=== PATIENT | female | born 1945 | race Caucasian/White ===

== ENCOUNTER → 2016-04-18 | Outpatient (CLI) | payer OTHER | LOC: MMPC 10:00 | PROVIDERS: ATTEND Orthopaedic Surgery | DX: M81.0 Age-related osteoporosis without current pathological fracture (principal); M70.61 Trochanteric bursitis, right hip; Z96.7 Presence of other bone and tendon implants; Z96.651 Presence of right artificial knee joint; Z96.641 Presence of right artificial hip joint | CPT/HCPCS: 20610 ×2; 99213; G0463; J0702 ==

== ENCOUNTER 2016-06-16 13:16 | Outpatient (CLI) | payer OTHER ==
[2016-06-16] MEDS ORDERED: Sodium Chloride 0.9% 50 ML IV ONE (13:43)
[2016-06-16 13:54] VITALS: RESP 20; TEMP 97.1
[2016-06-16] MEDS ORDERED: NORMAL SALINE 10 ML SYRINGE FLUSH IVP PRN (13:56)
== END 2016-06-16 14:47 | disposition home or self-care (01) ==
LOC: IV THERAPY 13:16
PROVIDERS: ATTEND Orthopaedic Surgery
DX: M81.0 Age-related osteoporosis without current pathological fracture (principal)
CPT/HCPCS: 96365; 99211

== ENCOUNTER 2018-05-16 13:45 | Inpatient (IN) ==
--- NOTE | 2018-05-16 14:24 | PDOC ---
Fall HPI - General Chief Complaint: Upper Extremity Problem/Injury Stated Complaint: TRIPPED OVER SHOVEL LEFT THUMB AND LEG INJURY Date Seen by Provider: 05/16/18 Time Seen by Provider: 14:24 - History of Present Illness Initial Comments: This very nice 72-year-old woman who was shoveling her on today when she tripped over the shovel and ended up sustaining a fall. She had instant pain in her left hand around the base of her thumb and the base of her first finger and instant pain in her left hip/groin. She contacted EMS and they brought her here to the emergency department. Here in the emergency department she denies any recent cardiopulmonary sorts of problems or issues she states she's never had to have any sort of cardiopulmonary interventions or procedures. She denies being on blood thinners of any kind. She knows that she has severe osteoporosis at this point. She is breathing okay does not have chest pain does not have any neurologic complaints just pain in that left hip and in the left hand and then also some mild pain in the right leg/hip but much less than the left Have you received a tetanus shot in the past 10 years?: No - Patient Home Medications Home Medications: Home Medications Acyclovir 400 mg PO BID 03/29/11 Atorvastatin Calcium [LIPITOR] 10 mg PO DAILY 03/29/11 Acyclovir [Zovirax] 5 gm TP PRN PRN 04/06/11 Carboxymethylcellulose Sodium [Thera Tears] 30 ml OP DAILY 04/06/11 Cyclosporine [Restasis] 1 each OP TID 04/06/11 Hydrocortisone Butyrate/Emoll [Locoid 0.1% Lipocream] 60 gm TP PRN PRN 04/06/11 Acetaminophen with Codeine [Tylenol With Codeine #3 Tablet] 1 tab PO Q6H PRN tab 10/24/13 Codeine Sulfate 1 tab PO PRN PRN tab 10/24/13 Cyanocobalamin Inj [Vitamin B-12 Inj] 1,000 mcg IM MONTHLY ml 10/02/14 Aspirin [Aspir 81] 1 tab PO QHS tab 05/24/16 Activated Charcoal [Charcoal, Activated] 260 mg PO PRN PRN 05/16/18 Fluticasone Nasal [place] 0.05% [Flonase Nasal [place] 0.05%] 1 sprays NASAL BID PRN 05/16/18 Nitroglycerin 0.4 mg SUBLINGUAL TID PRN 05/16/18 - Patient Allergies Allergies/Adverse Reactions: Allergies Allergy/AdvReac Type Severity Reaction Status Date / Time alendronate sodium Allergy Intermediate RASH Verified 05/16/18 15:19 [From Fosamax] latex Allergy Intermediate RASH Verified 05/16/18 15:19 oxycodone [Oxycodone] Allergy Intermediate RASH Verified 05/16/18 15:19 Penicillins Allergy Intermediate RASH Verified 05/16/18 15:19 risedronate sodium Allergy Intermediate RASH Verified 05/16/18 15:19 [From Actonel] Sulfa (Sulfonamide Allergy Intermediate RASH Verified 05/16/18 15:19 Antibiotics) TAPE Allergy Intermediate RASH Uncoded 05/16/18 15:19 Past Medical History - heen HEENT History: Cataracts, Dentures/Partials Cardiovascular History: Valvular Heart Disease Additional Cardiovasular History: HAS 2 LEAKY HEART VALVES Respiratory History: Denies History Gastrointestinal History: Denies History Additional Genitourinary History: HX OF UTI'S Endocrine History: Hypothyroidism Musculoskeletal History: Arthritis, Back Pain, Back Injury, Muscle Weakness, Limited ROM, Carpal Tunnel Prosthesis or Implant: Yes (R KENDY; RIGHT LEG ORIF) Additional Musculoskeletal History: HERNIATED DISC Additional Neurological History: BILAT HAND NUMBNESS Blood Disorders: Denies History Psychiatric History: Denies History Cancer History: Denies History History of MDRO: Yes Alcohol Use: None In the Past 12 Months, Have Used or Abuse Any Substance: None Past Medical History Reviewed: Reviewed - No Changes ROS - Limitations ROS Limitations: No Limitations Constitution: REPORTS: Denies Symptoms Cardiovascular: REPORTS: Denies Cardiac Symptoms Respiratory: REPORTS: Denies Resp Symptoms Neurological: REPORTS: Denies Neuro Symptoms Gastrointestinal: REPORTS: Denies GI Symptoms Endocrine: REPORTS: Denies Symptoms Fall Physical Exam - General Appearance General Appearance: POSITIVE: Alert, Cooperative, No Acute Distress - HEENT HEENT: POSITIVE: Head Inspection Nml, Eyes Inspection Nml - Neck Neck: POSITIVE: Non Tender, Painless ROM - Respiratory / CVS Respiratory / CVS: POSITIVE: Chest Non Tender, No Ecchymosis - Abdomen Abdomen: Soft: (All Quadrants), Normal Bowel Sounds: (All Quadrants), Denies Tenderness: (All Quadrants) - Neuro / Psych Neuro / Psych: POSITIVE: Oriented X3 - Skin Skin: POSITIVE: Intact, Warm, Dry - Back Back: POSITIVE: Normal Inspection, No CVA Tenderness - Extremities Additional Extremities Details: Patient has significant pain in that left hip and a slight amount of pain in the right hip also pain with her left thumb she has ecchymoses around the base of her thumb and in the dorsum of her hand as well. External rotation of the left hip slightly. Joint Exam: POSITIVE: Unable to Bear Weight Fall Progress - Results Reviewed by me Xrays/CTs/US Reviewed by me: Yes Radiology Findings: Left-sided intertrochanteric hip fracture. First metacarpal fracture on the left Lab Results Reviewed by Me: Yes CBC and BMP: 05/16/18 15:25 05/16/18 15:25 Lab Results:: Laboratory Results 05/16/18 05/16/18 05/16/18 15:25 15:25 15:25 WBC 8.45 RBC 3.90 L Hgb 11.2 L Hct 34.8 L MCV 89.2 MCH 28.7 MCHC 32.2 L RDW Std Deviation 46.2 RDW Coeff of Dylan 14.4 Plt Count 239 MPV 9.8 Immature Gran % (Auto) 0.1 Neut % (Auto) 86.9 H Lymph % (Auto) 8.9 L [place] % (Auto) 4.0 L Eos % (Auto) 0 Baso % (Auto) 0.1 Immature Gran # (Auto) 0.01 Neut # (Auto) 7.34 Lymph # (Auto) 0.75 [place] # (Auto) 0.34 Eos # (Auto) 0 Baso # (Auto) 0.01 WBC Morphology Comment Normal morphology Plt Morphology Comment Normal morphology RBC Morph Comment Normal morphology PT 11.2 INR 1.11 Sodium 141 Potassium 3.6 L Chloride 108 Carbon Dioxide 22 L Anion Gap 11 BUN 12 Creatinine 0.5 BUN/Creatinine Ratio 24.00 H Glucose 142 H Calculated Osmolality 293.0 H Calcium 9.4 Magnesium 1.5 L Total Bilirubin 1.2 AST 30 ALT 40 Alkaline Phosphatase 118 Total Protein 6.1 Albumin 3.8 Globulin 2.3 L Albumin/Globulin Ratio 1.60 - Patient's Progress MDM / ED Course: This patient unfortunately has a hip fracture and outfractured hand. We have reached out to orthopedics and are waiting for Dr. Olvera to get surgery but he will likely except the patient. We'll then get hospitalist involved to admit the patient and for surgical clearance.. Patient Care Time - Estimated PCT Patient Care Time (In Minutes): 45 Vital Signs - Recent Vital Signs Vital Signs: Vital Signs (Last 8 hours) Temp Pulse Resp BP Pulse Ox 05/16/18 13:45 97.7 F 109 H 18 120/83 96 - VS Reviewed Vital Signs Reviewed: Yes Discharge Clinical Impression: Intertrochanteric fracture of left femur Qualifiers: Encounter type: initial encounter Fracture type: closed Fracture alignment: nondisplaced Qualified Code(s): S72.145A - Nondisplaced intertrochanteric fracture of left femur, initial encounter for closed fracture Metacarpal bone fracture Qualifiers: Encounter type: initial encounter Metacarpal bone: first Fracture alignment: nondisplaced Laterality: left Discharge Disposition: Admit to Inpatient Condition: Fair Patient Instructions Given at Discharge: Hip Fracture (ED) Follow Up With: MARIA ALEJANDRA SUBRAMANIAN [Primary Care Provider] - Date Decision to Admit to Inpatient: 05/16/18 Time Decision to Admit to Inpatient: 17:43
[2018-05-16] MEDS ORDERED: MORPHINE SULFATE 4 MG/1 ML IVP ONE ×2 (14:32→18:57)
--- NOTE | 2018-05-16 15:05 | DI ---
XR HAND MIN 3VW,05/16/2018 2:22 PM: Clinical History: Status post fall with left hand and thumb pain. Previous Exam: Left wrist performed September 25, 2006 Findings: 3 views of the left hand are obtained, and demonstrate diffuse osteopenia. There is also a fracture i nvolving the proximal left first metacarpal which is new from the prior exam. There are some degenera tive changes involving the first carpometacarpal joint. There is some subchondral cyst formation involving the distal radius. There is loss of joint space th roughout the interphalangeal joints. Impression: Fracture of the left first proximal metacarpal. Diffuse osteopenia and degenerative changes of the fingers and the radiocarpal joint.
[2018-05-16] MEDS ORDERED: ONDANSETRON 4 MG/2 ML VIAL IVP ONE (15:15)
[2018-05-16 15:33] LABS: BASOPHILS # (AUTO) 0.01 10*3/UL; BASOPHILS % (AUTO) 0.1 % (0-1); EOSINOPHILS # (AUTO) 0 10*3/UL; EOSINOPHILS % (AUTO) 0 % (0-8); Hematocrit [HCT] 34.8 % (37.0-47.0); Hemoglobin [HGB] 11.2 g/dL (12.0-16.0); LYMPHOCYTES # (AUTO) 0.75 10*3/uL; MEAN CORPUSCULAR HEMOGLOBIN 28.7 PG (27-31); MEAN CORPUSCULAR HGB CONC 32.2 g/dL (33-37); MEAN CORPUSCULAR VOLUME 89.2 FL (81-99); MEAN PLATELET VOLUME 9.8 FL (7.4-12.2); MONOCYTES # (AUTO) 0.34 10*3/UL (0.3-0.8); NEUTROPHILS # (AUTO) 7.34 10*3/UL; NEUTROPHILS % (AUTO) 86.9 % (50-80)
--- NOTE | 2018-05-16 15:44 | DI ---
XR FEMUR 2VW,05/16/2018 2:22 PM: Clinical History: Fall with left leg pain. Previous Exam: None at this facility. Findings: A single view of the femur is obtained, and demonstrate mild diffuse osteopenia. There is a knee brace in place. Impression: No fracture.
--- NOTE | 2018-05-16 15:48 | DI ---
XR HIP B/L MIN 2VW,05/16/2018 2:36 PM: Clinical History: Status post fall with bilateral hip pain. Previous Exam: None at this facility. Findings: AP view of the pelvis as well as AP view of each hip with crosstable lateral views, and demonstrate a displaced intertrochanteric fracture of the left hip. Degenerative changes of lower lumbar spine are seen. There is a right femoral prosthesis. Impression: Displaced Left-sided intertrochanteric hip fracture
[2018-05-16 15:49] LABS: PLATELET MORPHOLOGY COMMENT NORMAL MORPHOLOGY (NORM); RBC MORPHOLOGY COMMENT NORMAL MORPHOLOGY (NORM); WBC MORPHOLOGY COMMENT NORMAL MORPHOLOGY (NORM)
[2018-05-16 15:51] LABS: BLOOD UREA NITROGEN 12 mg/dL (7-22); SERUM ALBUMIN 3.8 g/dL (3.5-4.8)
[2018-05-16] MEDS ORDERED: CALCIUM CARBONATE 500 MG (TUMS) CHEWABLE TABLET PO PRN (20:00)
[2018-05-16] MEDS ORDERED: ACETAMINOPHEN 325 MG TABLET PO PRN (20:00)
[2018-05-16] MEDS ORDERED: LIDOCAINE W/ SODIUM BICARB 0.5 ML SYR SUBD PRN (20:00)
[2018-05-16] MEDS ORDERED: ONDANSETRON 4 MG/2 ML VIAL IVP PRN (20:00)
--- NOTE | 2018-05-16 20:00 | PDOC ---
HPI - History of Present Illness Date of Service: 05/16/18 Time of Service: 20:30 Chief Complaint: Pain in the left hip after a fall, pain in the left thumb History of Present Illness: This is a 72 years old female with medical history significant for history of mitral valve prolapse, history of cold sores on oral acyclovir, history of hyperlipidemia, previous history of hypothyroidism was on replacement but not anymore, who was out "scooping snow" today when she tripped over the shovel and ended up sustaining a fall. She had pain in the left hand at the base of the finger and also pain in her hip and groin. Neighbors helped her to get into her house. She did not want the medics to bring her here so her neighbor apparently brought her to the hospital in [place] as she knows Dr. Olvera and she thinks highly of him, she lives in [place]. She was evaluated in the ER and found to have a left hip fracture and also fracture of the first left metacarpal she was given pain medication and was admitted. By the time she came into the floor pain seemed to be controlled with the pain medication that she received down in the ER. Patient said that she has a long list of allergies to medication including food. She said the pain medication that works for her is Tylenol with codeine in addition morphine also works for her. She denied a history of hypertension, diabetes, coronary artery disease or stroke. She said she had two leaky valves, previous note mention mitral valve prolapse. She sees the coffee urn attendant for that and last time she had an echo she said maybe a year or 2 years ago. Nobody told her that she need any surgery. History is somewhat difficult to be taken from the patient because she changes the subject quite often and takes long time before she answer the question. Past Medical History Medical History: 1. Hyperlipidemia. 2. History of mitral valve prolapse. 3. History of hypothyroidism was on treatment but her primary discontinued that in 2009 or 2011. 4. History of cold sores on acyclovir including oral and cream. 5. History of nasal allergies. 6. History of dry eyes. 7. History of compression fractures of her back Surgical History: 1. History of Cholecystectomy. 2. History of appendectomy. 3. History of complex right hip surgery in the past. Family History: Reviewed an Not Pertinent Past Social History: Does not smoke, does not drink, no drugs. Lives by herself in [place]. No children. Tobacco Use: Never Smoker In the Past 12 Months, Have Used or Abuse Any of the Following Substance: None Alcohol Use: None Medication / Allergies Home Medications: Home Medications Medication Instructions Recorded Confirmed Type Acyclovir 400 mg PO BID 03/29/11 05/16/18 History Atorvastatin Calcium [LIPITOR] 10 mg PO DAILY 03/29/11 05/16/18 History Acyclovir [Zovirax] 5 gm TP PRN PRN 04/06/11 05/16/18 History Carboxymethylcellulose Sodium 30 ml OP DAILY 04/06/11 05/16/18 History [Thera Tears] Cyclosporine [Restasis] 1 each OP TID 04/06/11 05/16/18 History Hydrocortisone Butyrate/Emoll 60 gm TP PRN PRN 04/06/11 05/16/18 History [Locoid 0.1% Lipocream] Acetaminophen with Codeine 1 tab PO Q6H PRN tab 10/24/13 05/16/18 History [Tylenol With Codeine #3 Tablet] Codeine Sulfate 1 tab PO PRN PRN tab 10/24/13 05/16/18 History Cyanocobalamin Inj [Vitamin B-12 1,000 mcg IM MONTHLY ml 10/02/14 05/16/18 Hi story Inj] Aspirin [Aspir 81] 1 tab PO QHS tab 05/24/16 05/16/18 History Activated Charcoal [Charcoal, 260 mg PO PRN PRN 05/16/18 05/16/18 History Activated] Fluticasone Nasal [place] 0.05% 1 sprays NASAL BID PRN 05/16/18 05/16/18 History [Flonase Nasal [place] 0.05%] Nitroglycerin 0.4 mg SUBLINGUAL TID PRN 05/16/18 05/16/18 History Allergies/Adverse Reactions: Allergies Allergy/AdvReac Type Severity Reaction Status Date / Time alendronate sodium Allergy Intermediate RASH Verified 05/16/18 15:19 [From Fosamax] latex Allergy Intermediate RASH Verified 05/16/18 15:19 oxycodone [Oxycodone] Allergy Intermediate RASH Verified 05/16/18 15:19 Penicillins Allergy Intermediate RASH Verified 05/16/18 15:19 risedronate sodium Allergy Intermediate RASH Verified 05/16/18 15:19 [From Actonel] Sulfa (Sulfonamide Allergy Intermediate RASH Verified 05/16/18 15:19 Antibiotics) TAPE Allergy Intermediate RASH Uncoded 05/16/18 15:19 Review of Systems - Review of Systems All Systems: Reviewed & No Additional Complaints Except as Stated Exam - Vitals Vital Signs: Vital Signs Temperature 97.7 F Temperature Source Temporal Artery Scan Pulse Rate [Pulse Oximeter] 109 Respiratory Rate 18 Blood Pressure [Right Arm] 120/83 Pulse Ox 96 Oxygen Delivery Method Room Air Height 5 ft Weight 117 lb - General General Appearance: No Acute Distress, Cooperative - Head Head Exam: Normal Inspection - Eye Eye Exam: POSITIVE: Normal Appearance - ENT ENT Exam: POSITIVE: Normal Exam - Neck Neck Exam: Normal Inspection - Respiratory Respiratory Exam: POSITIVE: Clear to Auscultation - Bilaterally - Cardiovascular Cardiovascular Exam: POSITIVE: RRR - GI/Abdominal GI/Abdominal Exam: POSITIVE: Normal Bowel Sounds, Non Tender, Non Distended, Soft, No Organomegaly - Rectal Rectal Exam: POSITIVE: Deferred - External Exam: POSITIVE: Deferred - Extremities Extremities Exam: POSITIVE: Normal Inspection - Back Back Exam: POSITIVE: Normal Inspection - Neurological Neurological Exam: POSITIVE: Alert, Oriented x 3, CN II-XII Intact, No Facial Droop, Speech Intact / Clear - Psychiatric Psychiatric Exam: POSITIVE: Flat Affect - Integumentary Integumentary Exam: POSITIVE: Normal Color Results - Labs CBC and BMP: 05/16/18 15:25 05/16/18 15:25 Assessment and Plan - Patient Problems (1) Intertrochanteric fracture of left femur Current Visit: Yes Status: Acute Comment: Dr. Olvera saw the patient and he is planning to do the surgery he said on Monday morning. In terms of revised cardiac risk index assessment, she seems to fall into the one risk category, she does not have a history of coronary artery disease or strokes, creatinine is normal, no diabetes no history of heart failure, the only thing is her EKG is abnormal with questionable Q waves in the inferior leads. I think will order a troponin for some reason she is on Nitro although she does not give me a history of coronary artery disease, the notes from cardiology in 2007 mention atypical chest pain. We'll see what the troponin but regardless I think she can proceed with surgery her risk for cardiac complication is about 1%. In terms of pain I will write for morphine and Tylenol No. 3 as that seem the only thing that works for her. Her magnesium and potassium on the low side will write for replacing both. Code(s): S72.142A - Displaced intertrochanteric fracture of left femur, initial encounter for closed fracture Qualifiers: Encounter type: initial encounter Fracture type: closed Fracture alig nment: nondisplaced Qualified Code(s): S72.145A - Nondisplaced intertrochanteric fracture of left femur, initial encounter for closed fracture (2) Metacarpal bone fracture Current Visit: Yes Status: Acute Comment: Management. Dr. Olvera he said he will fix both of the same time. Code(s): S62.309A - Unspecified fracture of unspecified metacarpal bone, initial encounter for closed fracture Qualifiers: Encounter type: initial encounter Metacarpal bone: first Fracture alignment: nondisplaced Laterality: left (3) History of cold sores Current Visit: Yes Status: Acute Comment: Continue previous medications Code(s): Z86.19 - Personal history of other infectious and parasitic diseases
[2018-05-16] MEDS ORDERED: ACYCLOVIR TP PRN (20:03)
[2018-05-16] MEDS ORDERED: HYDROCORTISONE BUTYRATE TP PRN (20:03)
[2018-05-16] MEDS ORDERED: FLUTICASONE PROPIONATE 16 GRAM (120 SPRAYS / BOTTLE) ENOS PRN (20:03)
[2018-05-16] MEDS ORDERED: [UNRECOGNIZED DRUG - OTHER] TP PRN (20:03)
--- NOTE | 2018-05-16 20:50 | EKG ---
[address] [place] [id number] Measurements Intervals [place] Rate: 82 P: 245 [place]: 155 QRS: -86 QRSD: 86 T: 268 QT: 348 QTc: 387 Interpretive Statements ECTOPIC ATRIAL RHYTHM/ ?Junctional rhythm INFERIOR MYOCARDIAL INFARCTION [40+ ms Q WAVE AND/OR ST/T ABNORMALITY IN II/aVF], OF INDETERMINATE AGE Left [place] deviation No previous ECG available for comparison Electronically Signed On 05-17-18 10:19:03 [facility] by Freddie Decker MD [email or web address]
[2018-05-16] MEDS ORDERED: Magnesium Sulfate 2gm (Premix) 2 GM/50 ML BAG IV ONE (21:53)
[2018-05-16] MEDS: ACYCLOVIR 400 MG TABLET PO SCH (21:59)
[2018-05-16] MEDS: MORPHINE SULFATE 2 MG/1 ML IVP PRN (22:00)
[2018-05-16] MEDS: CYCLOSPORINE OP SCH (23:21)
[2018-05-17] MEDS: MORPHINE SULFATE 2 MG/1 ML IVP PRN ×8 (01:11→22:52)
[2018-05-17] MEDS: MAGNESIUM OXIDE 400 MG TABLET PO SCH (07:40)
[2018-05-17] MEDS: ACETAMINOPHEN WITH CODEINE 300 MG/30 MG TABLET PO PRN ×3 (08:01→21:03)
--- NOTE | 2018-05-17 08:05 | CONSULT ---
Consult Note - Consult Consult Date: 05/16/18 Reason for Consult: PreOp Consulation : Ortho Requesting Physician: Dr. Aubrey Geiger Primary Care Provider: MARIA ALEJANDRA SUBRAMANIAN - History of Present Illness History of Present Illness: Patient is a 72-year-old female who tripped over shovel today landing on her left hip immediate pain and discomfort she also had some pain in the left hand. 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 Patient with deformity pain discomfort of the left hip put on a splint and a knee brace that she has at home and had a friend bring her from [facility] down to [facility] have her care here. She denies any loss of consciousness shortness of breath tripped over a shovel shoveling today. Past Medical History Medical History: 1. Hyperlipidemia. 2. History of mitral valve prolapse. 3. History of hypothyroidism was on treatment but her primary discontinued that in 2009 or 2011. 4. History of cold sores on acyclovir including oral and cream. 5. History of nasal allergies. 6. History of dry eyes. 7. History of compression fractures of her back Surgical History: 1. History of Cholecystectomy. 2. History of appendectomy. 3. History of complex right hip surgery in the past. Family History: Reviewed an Not Pertinent Past Social History: Does not smoke, does not drink, no drugs. Lives by herself in [place]. No children. Tobacco Use: Never Smoker In the Past 12 Months, Have Used or Abuse Any of the Following Substance: None Alcohol Use: None Medication / Allergies Home Medications: Home Medications Medication Instructions Recorded Confirmed Type Acyclovir 400 mg PO BID 03/29/11 05/16/18 History Atorvastatin Calcium [LIPITOR] 10 mg PO DAILY 03/29/11 05/16/18 History Acyclovir [Zovirax] 5 gm TP PRN PRN 04/06/11 05/16/18 History Carboxymethylcellulose Sodium 30 ml OP DAILY 04/06/11 05/16/18 History [Thera Tears] Cyclosporine [Restasis] 1 each OP TID 04/06/11 05/16/18 History Hydrocortisone Butyrate/Emoll 60 gm TP PRN PRN 04/06/11 05/16/18 History [Locoid 0.1% Lipocream] Acetaminophen with Codeine 1 tab PO Q6H PRN tab 10/24/13 05/16/18 History [Tylenol With Codeine #3 Tablet] Codeine Sulfate 1 tab PO PRN PRN tab 10/24/13 05/16/18 History Cyanocobalamin Inj [Vitamin B-12 1,000 mcg IM MONTHLY ml 10/02/14 05/16/18 History Inj] Aspirin [Aspir 81] 1 tab PO QHS tab 05/24/16 05/16/18 History Activated Charcoal [Charcoal, 260 mg PO PRN PRN 05/16/18 05/16/18 History Activated] Fluticasone Nasal Ririe 0.05% 1 sprays NASAL BID PRN 05/16/18 05/16/18 History [Flonase Nasal Ririe 0.05%] Nitroglycerin 0.4 mg SUBLINGUAL TID PRN 05/16/18 05/16/18 History Allergies/Adverse Reactions: Allergies Allergy/AdvReac Type Severity Reaction Status Date / Time alendronate sodium Allergy Intermediate RASH Verified 05/17/18 06:48 [From Fosamax] latex Allergy Intermediate RASH Verified 05/17/18 06:48 oxycodone [Oxycodone] Allergy Intermediate RASH Verified 05/17/18 06:48 Penicillins Allergy Intermediate RASH Verified 05/17/18 06:48 risedronate sodium Allergy Intermediate RASH Verified 05/17/18 06:48 [From Actonel] Sulfa (Sulfonamide Allergy Intermediate RASH Verified 05/17/18 06:48 Antibiotics) TAPE Allergy Intermediate RASH Uncoded 05/16/18 15:19 Exam - - Exam: Patient is a well-developed well-nourished female in no apparent distress she is alert and oriented times recorded with appropriate affect no pain or discomfort in the right upper extremity over the neck or upper portion of the shoulder or elbow on the left she does have some swelling and ecchymosis around the thumb on the left. She can use it for basic and simple activities. Her sensory exam generally appears to be benign. She wears a back brace for chronic compression fractures. Examination the right lower extremity short leg appropriate position long incision along the femur area and it knee and hip. No active issues bruising or ecchymosis on the left no marked or bruising or ecchymosis but some mild shortening and rotation of the femur distally as well as the foot and ankle with normal foot and ankle motion. She has slight internal rotation of the foot and ankle motor and sensory seems to be normal no swelling or edema good pulses and brisk refill. Radiographs were obtained of both hips which show that I don't see any clear evidence of fracture of the femur replacement total knee and total hip that she has on the right elbow is generally appears to be benign she does have a comminuted intertrochanteric fracture which does go down to the lesser trochanteric region. Patient also with x-rays of her hand which show a first metacarpal fracture on the left and the distal proximal third with some slight angulation. - Vitals Vital Signs: Vital Signs Temperature 97 F Temperature Source Temporal Artery Scan Pulse Rate [Pulse Oximeter] 89 Pulse Rate 94 Respiratory Rate 20 Blood Pressure [Right Arm] 113/35 Blood Pressure 110/71 Pulse Ox 90 Oxygen Delivery Method Room Air Height 5 ft Weight 53.07 kg Results - Labs CBC and BMP: 05/16/18 15:25 05/16/18 15:25 Assessment and Plan - Assessment / Plan Additional Assessment/Plan Details: Impression: Left first metacarpal fracture Left comminuted intertrochanteric hip fracture Plan:We discussed the patient's current condition and clinical findings as it pertains to the current situation. Surgical versus nonsurgical options risks and benefits were discussed and reviewed. Options moving forward include but are not limited to continued choice to live with their current condition; evaluate their current condition further with imaging studies and/or diagnostic testing, etc.; treat problem/problems with surgical versus nonsurgical methods. The patient demonstrates a clear understanding of our discussion. All questions were answered. Surgical versus nonsurgical options risks and benefits were discussed and reviewed. The risks include but are not limited to bleeding, infection, neurovascular damage, wound problems, deep vein thromboses, pulmonary embolism, fracture, dislocation, nonunion/malunion, need for further surgery, need for blood transfusion, and loss of life and limb. Certainly any surgical procedure may not improve symptoms and potentially could makes symptoms worse. There are no guarantees implied with the discussion of surgical treatment. All questions are answered and the patient wishes to proceed with surgical treatment. At this point I would like to get a CT scan of the left hip with 3-D reconstruction to get a better sense of the degree of comminution since she has severe osteoporosis. As we've discussed with the patient we tentatively planned awaiting instrumentation for a left trochanteric type nail to help hold reduce h is fracture. She does have poor bone quality so I think a long nail would be appropriate as far as her metacarpal think under anesthesia gentle closed reduction and splinting may be appropriate if this is stable if not may require some pinning. We will proceed with a CT scan at this point in time.
[2018-05-17] MEDS: Potassium Chloride Tab 10 MEQ TAB PO SCH (08:39)
[2018-05-17] MEDS: ACYCLOVIR 400 MG TABLET PO SCH ×2 (08:39→21:03)
[2018-05-17] MEDS: CYCLOSPORINE OP SCH ×3 (09:12→21:09)
--- NOTE | 2018-05-17 10:04 | PDOC(PROG) ---
Interval History: Patient had no complaints pain is controlled as been wanting to take a shower nursing in the room and they will asked Dr. Olvera if this is possible. She also wants her Lipitor restarted MAR she says she has not been taking it for the last 3 months because she ran out she wants it tonight at 8 PM denies chest pain nausea vomiting Objective : Data - Labs CBC and BMP: 05/16/18 15:25 05/16/18 15:25 Objective : Exam - General General Appearance: Cooperative - Respiratory Respiratory Exam: Clear to Auscultation - Bilaterally, Breathing Non Labored, Normal To Percussion, Normal to Percussion and Palpation - Cardiovascular Cardiovascular Exam: RRR, No Murmur, No Clicks, No Gallops, No Rubs, PMI Non- Displaced - GI/Abdominal GI/Abdominal Exam: Normal Bowel Sounds, Non Tender, Non Distended, Soft, No Masses, No Hepatomegaly, No Splenomegaly, No Organomegaly Assessment and Plan - Patient Problems (1) Intertrochanteric fracture of left femur Current Visit: Yes Status: Acute Comment: Deferred to Dr. Olvera most likely surgery in a.m. Code(s): S72.142A - Displaced intertrochanteric fracture of left femur, initial encounter for closed fracture Qualifiers: Encounter type: initial encounter Fracture type: closed Fracture alignment: nondisplaced Qualified Code(s): S72.145A - Nondisplaced intertrochanteric fracture of left femur, initial encounter for closed fracture (2) Metacarpal bone fracture Current Visit: Yes Status: Acute Code(s): S62.309A - Unspecified fracture of unspecified metacarpal bone, initial encounter for closed fracture Qualifiers: Encounter type: initial encounter Metacarpal bone: first Fracture alignment: nondisplaced Laterality: left (3) History of cold sores Current Visit: Yes Status: Acute Code(s): Z86.19 - Personal history of other infectious and parasitic diseases (4) Hypercholesterolemia Current Visit: Yes Status: Acute Comment: 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
--- NOTE | 2018-05-17 11:40 | DI ---
CT Lower Extremity WO Contrast,05/17/2018 7:55 AM: Clinical History: Comminuted left hip fracture. Previous Exam: March 04, 2007 Findings: Multiple helically acquired CT images are obtained through the pelvis without contrast, and demonstra te postsurgical changes involving the right hip consistent with total hip arthroplasty and a right lo wer extremity Prosthesis extending down the right femur. There is a comminuted intertrochanteric fracture with avulsion of the lesser trochanter. There is dao nward displacement of the femoral head. There is some soft tissue stranding within the fat and the musculature. Impression: Comminuted intertrochanteric fracture of the left proximal femur.
[2018-05-17] MEDS ORDERED: CYANOCOBALAMIN 1000 MCG/1 ML VIAL IM SCH (13:00)
--- NOTE | 2018-05-17 13:54 | ORTHO.PROG ---
Last Taken Vital Signs: Vital Signs - Last Taken Temperature 97 F 05/17/18 07:14 Pulse Rate 89 05/17/18 07:14 Respiratory Rate 20 05/17/18 07:14 Blood Pressure 113/35 05/17/18 07:14 Pulse Ox 90 05/17/18 07:14 Subjective: Patient with a fair amount of pain left femur a little less so in the left hand. Objective: Left lower extremity no swelling or edema full active range of motion, popliteal adductor hiatus or mid to lower thigh pain. No pitting edema or swelling. No marked bruising or ecchymosis motor and sensory exam in the lower extremities is normal. Left hand has a fair amount of ecchymosis some mild angulation of the metacarpal but alignment overall seems reasonable patient with CMC joint arthritis. Patient's other hand with CMC arthritis in hyperextension at the MCP joint. Laboratory Results 05/16/18 05/16/18 05/16/18 15:25 15:25 15:25 WBC 8.45 RBC 3.90 L Hgb 11.2 L Hct 34.8 L MCV 89.2 MCH 28.7 MCHC 32.2 L RDW Std Deviation 46.2 RDW Coeff of Dylan 14.4 Plt Count 239 MPV 9.8 Immature Gran % (Auto) 0.1 Neut % (Auto) 86.9 H Lymph % (Auto) 8.9 L [place] % (Auto) 4.0 L Eos % (Auto) 0 Baso % (Auto) 0.1 Immature Gran # (Auto) 0.01 Neut # (Auto) 7.34 Lymph # (Auto) 0.75 [place] # (Auto) 0.34 Eos # (Auto) 0 Baso # (Auto) 0.01 WBC Morphology Comment Normal morphology Plt Morphology Comment Normal morphology RBC Morph Comment Normal morphology PT 11.2 INR 1.11 Sodium 141 Potassium 3.6 L Chloride 108 Carbon Dioxide 22 L Anion Gap 11 BUN 12 Creatinine 0.5 BUN/Creatinine Ratio 24.00 H Glucose 142 H Calculated Osmolality 293.0 H Calcium 9.4 Magnesium 1.5 L Total Bilirubin 1.2 AST 30 ALT 40 Alkaline Phosphatase 118 Troponin I Total Protein 6.1 Albumin 3.8 Globulin 2.3 L Albumin/Globulin Ratio 1.60 05/16/18 05/17/18 15:45 08:44 WBC RBC Hgb Hct MCV MCH MCHC RDW Std Deviation RDW Coeff of Dylan Plt Count MPV Immature Gran % (Auto) Neut % (Auto) Lymph % (Auto) [place] % (Auto) Eos % (Auto) Baso % (Auto) Immature Gran # (Auto) Neut # (Auto) Lymph # (Auto) [place] # (Auto) Eos # (Auto) Baso # (Auto) WBC Morphology Comment Plt Morphology Comment RBC Morph Comment PT INR Sodium Potassium Chloride Carbon Dioxide Anion Gap BUN Creatinine BUN/Creatinine Ratio Glucose Calculated Osmolality Calcium Magnesium 1.9 Total Bilirubin AST ALT Alkaline Phosphatase Troponin I < 0.012 Total Protein Albumin Globulin Albumin/Globulin Ratio Vital Signs (24 hrs) 05/16/18 19:09 05/16/18 19:20 05/17/18 00:35 Temperature 99.5 F 98.6 F 98.9 F Pulse Rate 94 Pulse Rate [Pulse Oximeter] 85 88 Respiratory Rate 18 24 20 Blood Pressure 110/71 Blood Pressure [Right Arm] 122/79 107/56 Pulse Ox 94 94 91 05/17/18 04:00 05/17/18 07:00 05/17/18 07:14 Temperature 99.2 F 97 F Pulse Rate Pulse Rate [Pulse Oximeter] 88 89 89 Respiratory Rate 20 20 20 Blood Pressure Blood Pressure [Right Arm] 123/57 113/35 Pulse Ox 94 90 Assessment: Left intertrochanteric femoral neck fracture and thumb metacarpal fracture Plan: Patient had a CT scan which showed comminution of the proximal femur. Spent time discussing surgical options techniques for stabilization. I think based on her history of significant osteoporosis a long trochanteric nail with appropriate lag screw would be appropriate. We're going to try a closed reduction of the left thumb and splinting. She is in agreement we'll proceed along these lines at the current time We discussed the patient's current condition and clinical findings as it pertains to the current situation. Surgical versus nonsurgical options risks and benefits were discussed and reviewed. Options moving forward include but are not limited to continued choice to live with their current condition; evaluate their current condition further with imaging studies and/or diagnostic testing, etc.; treat problem/problems with surgical versus nonsurgical methods. The patient demonstrates a clear understanding of our discussion. All questions were answered. Surgical versus nonsurgical options risks and benefits were discussed and reviewed. The risks include but are not limited to bleeding, infection, neurovascular damage, wound problems, deep vein thromboses, pulmonary embolism, fracture, dislocation, nonunion/malunion, need for further surgery, need for blood transfusion, and loss of life and limb. Certainly any surgical procedure may not improve symptoms and potentially could makes symptoms worse. There are no guarantees implied with the discussion of surgical treatment. All questions are answered and the patient wishes to proceed with surgical treatment.
[2018-05-17] MEDS: Hypromellose/Glycerin/PEG 400 Ophth Soln 15 ML DROPS EACH EYE SCH (14:11)
--- NOTE | 2018-05-17 16:13 | OT AM DAY ---
AM - Occupational Therapy S: The patient was adamant about having a bigger brace. The one that she had on was not protecting her thumb. O: We tried a brace that would fit the patient's frame a little bit better, but she stated that it rubbed too much. We did give the patient a large thumb spica brace. She did not want one custom made. The therapist had to try about four different braces in order for the patient to be satisfied with the fit and comfort of the brace. A: The patient was pretty particular about the brace. Hopefully this one will work for her. P: No further therapy is indicated at this time. MTDD
[2018-05-17] MEDS ORDERED: ATORVASTATIN 10 MG TABLET PO SCH (21:00)
[2018-05-18] MEDS: Lactated Ringers 1,000 ML PRIMARY IV SCH ×5 (00:34→16:35)
[2018-05-18] MEDS: MORPHINE SULFATE 2 MG/1 ML IVP PRN ×3 (01:54→08:05)
[2018-05-18] MEDS: ACETAMINOPHEN WITH CODEINE 300 MG/30 MG TABLET PO PRN ×2 (03:00→09:14)
[2018-05-18] MEDS ORDERED: Clindamycin 900mg (Premix) 900 MG/50 ML BAG IV ONE ×2 (06:00→11:16)
[2018-05-18] MEDS ORDERED: LIDOCAINE W/ SODIUM BICARB 0.5 ML SYR SUBD ONE (06:00)
[2018-05-18] MEDS ORDERED: BUPivacaine Liposome/PF (Exparel) Inj 20ml vial INFIL ONE ×2 (06:00→14:04)
[2018-05-18] MEDS ORDERED: Nasal Sanitizer POPSWAB ampule 3 AMP (Nozin) PREOP DOSE ENOS SCH (06:00)
[2018-05-18 08:34] LABS: BILIRUBIN,URINE NEGATIVE (NEG); CLARITY,URINE CLEAR (CLEAR); COLOR,URINE YELLOW (Y); GLUCOSE, URINE (UA) NEGATIVE (NEG); OCCULT BLOOD,URINE MODERATE (NEG); PH,URINE 5.5 (5.0-8.5); PROTEIN,URINE NEGATIVE (NEG)
[2018-05-18 08:41] LABS: BACTERIA,URINE FEW; SQUAMOUS EPITHELIAL CELL,UR RARE; URINE SAMPLE TYPE CLEAN CATCH URINE
[2018-05-18] MEDS ORDERED: ATORVASTATIN 10 MG TABLET PO SCH (09:00)
--- NOTE | 2018-05-18 09:04 | ORTHO.PROG ---
Last Taken Vital Signs: Vital Signs - Last Taken Temperature 97.7 F 05/18/18 06:55 Pulse Rate 87 05/18/18 06:55 Respiratory Rate 16 05/18/18 06:55 Blood Pressure 103/49 05/18/18 06:55 Pulse Ox 91 05/18/18 06:55 Subjective: Patient notes no change with pain level reasonably controlled on Tylenol with codeine and morphine. Objective: Examination shows patient has mild internal rotation of the hip slight shortening. No open wounds or lesions. Patient with a knee brace in place. Patient also with a left hand ecchymosis and brace in place with a normal neurovascular status. Same with the lower extremity motor and sensory exam is nonfocal with good pulses brisk refill no pitting edema or swelling, popliteal, adductor hiatus or lower thigh pain. Laboratory Results 05/17/18 05/18/18 08:44 08:13 Magnesium 1.9 Ur Collection Type Clean catch urine Urine Color Yellow Urine Clarity Clear Urine pH 5.5 Ur Specific [place] 1.007 Urine Protein Negative Urine Glucose (UA) Negative Urine Ketones Negative Urine Occult Blood Moderate H Urine Nitrate Negative Urine Bilirubin Negative Urine Urobilinogen 1.0 Ur Leukocyte Esterase Small Urine RBC 9-14 A Urine WBC 4-8 H Ur Squamous Epith Cells Rare Ur Renal Epithelial Cell None Urine Crystals None Urine Bacteria Few Urine Casts None Urine Mucus Few Urine Trichomonas None Urine Yeast None Ur Culture Indicated? Culture set Assessment: Patient with a left first metacarpal fracture slight angulation. Left intertrochanteric comminuted fracture Plan: However discussion reviewed pictures of the intertrochanteric hip fracture on the left and also the hand discussed treatment with the patient of these she agrees and wishes to proceed along these lines the tentative plan is a closed reduction of the thumb placed into a radial gutter thumb spica splint and as far as the left femur that would be reduction and intramedullary nail long was stabilization. We reviewed radiographic pictures of the fractures. All questions were answered. Surgical versus nonsurgical options risks and benefits were discussed and reviewed. The risks include but are not limited to bleeding, infection, neurovascular damage, wound problems, deep vein thromboses, pulmonary embolism, fracture, dislocation, nonunion/malunion, need for further surgery, need for blood transfusion, and loss of life and limb. Certainly any surgical procedure may not improve symptoms and potentially could makes symptoms worse. There are no guarantees implied with the discussion of surgical treatment. All questions are answered and the patient wishes to proceed with surgical treatment.
[2018-05-18 09:12] LABS: Hematocrit [HCT] 27.5 % (37.0-47.0); Hemoglobin [HGB] 8.7 g/dL (12.0-16.0); MEAN CORPUSCULAR HEMOGLOBIN 28.4 PG (27-31); MEAN CORPUSCULAR HGB CONC 31.6 g/dL (33-37); MEAN CORPUSCULAR VOLUME 89.9 FL (81-99); MEAN PLATELET VOLUME 9.9 FL (7.4-12.2); RED BLOOD COUNT 3.06 10^6/uL (4.20-5.40)
[2018-05-18 09:29] LABS: BLOOD UREA NITROGEN 8 mg/dL (7-22)
[2018-05-18] MEDS ORDERED: Sodium Chloride 0.9% 0 ML ONE (10:32)
[2018-05-18] MEDS ORDERED: Sodium Chloride 0.9% 0 ML PRIMARY IV ONE (10:32)
[2018-05-18] MEDS: Potassium Chloride Tab 10 MEQ TAB PO SCH (11:10)
[2018-05-18] MEDS: ACYCLOVIR 400 MG TABLET PO SCH ×2 (11:10→20:41)
[2018-05-18] MEDS: Hypromellose/Glycerin/PEG 400 Ophth Soln 15 ML DROPS EACH EYE SCH (11:11)
[2018-05-18] MEDS: MAGNESIUM OXIDE 400 MG TABLET PO SCH (11:11)
[2018-05-18] MEDS: CYCLOSPORINE OP SCH ×2 (11:11→16:05)
[2018-05-18] MEDS ORDERED: MIDAZOLAM HCL 2 MG/2 ML VIAL ONE ×2 (11:21→12:04)
[2018-05-18] MEDS ORDERED: fentaNYL Inj 250 MCG/5 ML VIAL ONE (11:22)
[2018-05-18] MEDS ORDERED: BUPivacaine Inj 0.25% PF - 10ml vial ONE ×2 (11:37→14:06)
[2018-05-18] MEDS ORDERED: LIDOCAINE W/ SODIUM BICARB 0.5 ML SYR ONE (11:44)
[2018-05-18] MEDS ORDERED: PROPOFOL 10 MG/1 ML (200 MG/20 ML) VIAL IV ONE (12:02)
[2018-05-18] MEDS ORDERED: KETAMINE HCL 100 MG/2 ML SYRINGE IV ONE (12:42)
[2018-05-18] MEDS ORDERED: Sodium Chloride 0.9% vial 10 ML ONE (13:04)
[2018-05-18] MEDS ORDERED: BACITRACIN 50,000 UNIT VIAL IRRIG ONE (13:04)
[2018-05-18] MEDS ORDERED: Lactated Ringers 1,000 ML PRIMARY IV ONE (13:14)
[2018-05-18] MEDS ORDERED: TRANEXAMIC ACID 1,000 MG / 10 ML VIAL ONE (13:20)
[2018-05-18] MEDS ORDERED: ePHEDrine Inj 50 MG/ML AMP ONE (13:47)
--- NOTE | 2018-05-18 14:42 | ORTHO.OP ---
- - -: See Dictated Operative Report Procedure Codes - Hip Procedures Secondary Hip Procedure: Other CPT Code(s) (CPT codes [address] Salvador assisted with case)
--- NOTE | 2018-05-18 14:51 | PDOC(PROG) ---
Interval History: Patient is about to go in for surgery for her repair of her left hip and left thumb no chest pain nausea or vomiting Objective : Data - Labs CBC and BMP: 05/18/18 08:50 05/18/18 08:50 Objective : Exam - Respiratory Respiratory Exam: Clear to Auscultation - Bilaterally, Breathing Non Labored, Normal To Percussion, Normal to Percussion and Palpation - Cardiovascular Cardiovascular Exam: RRR, No Murmur, No Clicks, No Gallops, No Rubs, PMI Non- Displaced - GI/Abdominal GI/Abdominal Exam: Normal Bowel Sounds, Non Tender, Non Distended, Soft, No Masses, No Hepatomegaly, No Splenomegaly, No Organomegaly Assessment and Plan - Patient Problems (1) Intertrochanteric fracture of left femur Current Visit: Yes Status: Acute Comment: Going to surgery this a.m. Code(s): S72.142A - Displaced intertrochanteric fracture of left femur, initial encounter for closed fracture Qualifiers: Encounter type: initial encounter Fracture type: closed Fracture alignment: nondisplaced Qualified Code(s): S72.145A - Nondisplaced intertrochanteric fracture of left femur, initial encounter for closed fracture (2) Metacarpal bone fracture Current Visit: Yes Status: Acute Comment: Going to surgery today this morning Code(s): S62.309A - Unspecified fracture of unspecified metacarpal bone, initial encounter for closed fracture Qualifiers: Encounter type: initial encounter Metacarpal bone: first Fracture alignment: nondisplaced Laterality: left (3) History of cold sores Current Visit: Yes Status: Acute Code(s): Z86.19 - Personal history of other infectious and parasitic diseases (4) Hypercholesterolemia Current Visit: Yes Status: Acute Code(s): E78.00 - Pure hypercholesterolemia, unspecified (5) Hypokalemia Current Visit: Yes Status: Acute Comment: replace Code(s): E87.6 - Hypokalemia (6) Anemia Current Visit: Yes Status: Acute Comment: monitor Code(s): D64.9 - Anemia, unspecified
[2018-05-18] MEDS ORDERED: LIDOCAINE W/ SODIUM BICARB 0.5 ML SYR SUBD PRN (15:06)
[2018-05-18] MEDS ORDERED: fentaNYL Inj 100 MCG/2 ML VIAL IVP PRN (15:06)
[2018-05-18] MEDS ORDERED: HYDROmorphone 2 MG/1 ML IVP PRN (15:06)
[2018-05-18] MEDS ORDERED: ONDANSETRON 4 MG/2 ML VIAL IVP PRN ×3 (15:06→16:01)
[2018-05-18] MEDS ORDERED: HYDROmorphone 2 MG/1 ML ONE (15:07)
[2018-05-18] MEDS ORDERED: Lactated Ringers 1,000 ML PRIMARY IV SCH (15:15)
--- NOTE | 2018-05-18 15:16 | CRNA.PROGR ---
Anesthesia Time - Procedure/Recovery Time Start Date: 05/18/18 End Date: 05/18/18 Anesthesia : Time In: 12:03 Anesthesia : Time Out: 14:44 Anesthesia : Total Time: 161 - Total Anesthesia Time Total Anesthesia Time (minutes): 161 - Other Weight: 53.07 kg Height: 5 ft Body Mass Index (BMI): 22.8 Physical Status: P3 Anesthesia Type: General Anesthesia : LMA
--- NOTE | 2018-05-18 15:16 | CRNA.PROGR ---
Anesthesia Recovery Phase I - Post Anesthesia Evaluation Patient's Condition on Arrival in Phase I: Stable Pain Level: 3
[2018-05-18] MEDS ORDERED: ONDANSETRON 4 MG/2 ML VIAL ONE (15:51)
[2018-05-18] MEDS ORDERED: FLUTICASONE PROPIONATE 16 GRAM (120 SPRAYS / BOTTLE) ENOS PRN (16:01)
[2018-05-18] MEDS ORDERED: ACTIVATED CHARCOAL PO PRN (16:01)
[2018-05-18] MEDS ORDERED: ACYCLOVIR TP PRN (16:01)
[2018-05-18] MEDS ORDERED: HYDROmorphone 2 MG TABLET PO PRN (16:01)
[2018-05-18] MEDS ORDERED: HYDROCORTISONE BUTYRATE TP PRN (16:01)
[2018-05-18] MEDS ORDERED: [UNRECOGNIZED DRUG - OTHER] TP PRN (16:01)
[2018-05-18] MEDS: Clindamycin 900mg (Premix) 900 MG/50 ML BAG IV SCH (17:30)
[2018-05-18] MEDS: HYDROmorphone 2 MG/1 ML IVP PRN (20:00)
[2018-05-18] MEDS: ASPIRIN EC 81 MG TABLET PO SCH (20:41)
[2018-05-18] MEDS: ATORVASTATIN 10 MG TABLET PO SCH (20:41)
[2018-05-18] MEDS: DOCUSATE 100 MG CAPSULE PO SCH (20:42)
[2018-05-18] MEDS ORDERED: CYCLOSPORINE OP SCH (21:00)
[2018-05-19] MEDS: Clindamycin 900mg (Premix) 900 MG/50 ML BAG IV SCH ×2 (00:11→05:44)
[2018-05-19] MEDS: HYDROmorphone 2 MG/1 ML IVP PRN ×3 (02:11→07:14)
[2018-05-19] MEDS: Lactated Ringers 1,000 ML PRIMARY IV SCH (02:14)
[2018-05-19 04:53] LABS: BASOPHILS # (AUTO) 0.01 10*3/UL; BASOPHILS % (AUTO) 0.2 % (0-1); EOSINOPHILS # (AUTO) 0.02 10*3/UL; EOSINOPHILS % (AUTO) 0.4 % (0-8); Hematocrit [HCT] 21.7 % (37.0-47.0); LYMPHOCYTES # (AUTO) 0.49 10*3/uL; MEAN CORPUSCULAR HEMOGLOBIN 29.2 PG (27-31); MEAN CORPUSCULAR HGB CONC 31.8 g/dL (33-37); MEAN CORPUSCULAR VOLUME 91.9 FL (81-99); MEAN PLATELET VOLUME 10.3 FL (7.4-12.2); MONOCYTES # (AUTO) 0.37 10*3/UL (0.3-0.8); MONOCYTES % (AUTO) 7.7 % (5-15); NEUTROPHILS % (AUTO) 81.3 % (50-80); RED BLOOD COUNT 2.36 10^6/uL (4.20-5.40)
[2018-05-19 05:00] LABS: BLOOD UREA NITROGEN 6 mg/dL (7-22)
[2018-05-19 05:16] LABS: Hemoglobin [HGB] 6.9 g/dL (12.0-16.0); PLATELET MORPHOLOGY COMMENT NORMAL MORPHOLOGY (NORM); RBC MORPHOLOGY COMMENT SEE COMMENTS (NORM); WBC MORPHOLOGY COMMENT NORMAL MORPHOLOGY (NORM)
[2018-05-19] MEDS ORDERED: Sodium Chloride 0.9% 500 ML PRIMARY IV ONE (05:24)
[2018-05-19] MEDS: MAGNESIUM OXIDE 400 MG TABLET PO SCH (08:07)
[2018-05-19] MEDS: PANTOPRAZOLE 40 MG TABLET PO SCH (08:07)
[2018-05-19] MEDS ORDERED: Hypromellose/Glycerin/PEG 400 Ophth Soln 15 ML DROPS EACH EYE PRN (09:00)
[2018-05-19] MEDS: DOCUSATE 100 MG CAPSULE PO SCH ×2 (09:13→20:47)
[2018-05-19] MEDS: ACYCLOVIR 400 MG TABLET PO SCH ×2 (09:14→20:44)
[2018-05-19] MEDS: ACETAMINOPHEN WITH CODEINE 300 MG/30 MG TABLET PO PRN ×4 (09:14→20:45)
[2018-05-19] MEDS: ENOXAPARIN SODIUM 30 MG/0.3 ML SYRINGE SUBCUT SCH (09:15)
--- NOTE | 2018-05-19 09:54 | PDOC(PROG) ---
Interval History: Patient is postop day one more complaints no chest pain nausea or vomiting. Her hemoglobin is down the below 7 at 6.4 patient has agreed to receiving a transfusion Objective : Data - Labs CBC and BMP: 05/19/18 04:00 05/19/18 04:00 Objective : Exam - General General Appearance: Cooperative - Respiratory Respiratory Exam: Clear to Auscultation - Bilaterally, Breathing Non Labored, Normal To Percussion, Normal to Percussion and Palpation - Cardiovascular Cardiovascular Exam: RRR, No Murmur, No Clicks, No Gallops, No Rubs, PMI Non- Displaced - GI/Abdominal GI/Abdominal Exam: Normal Bowel Sounds, Non Tender, Non Distended, Soft, No Masses, No Hepatomegaly, No Splenomegaly, No Organomegaly Assessment and Plan - Patient Problems (1) Postoperative anemia Current Visit: Yes Status: Acute Comment: Type and cross and transfuse 2 units patient has agreed to receiving blood as per nurse Code(s): D64.9 - Anemia, unspecified (2) Intertrochanteric fracture of left femur Current Visit: Yes Status: Acute Comment: Defer to orthopedic surgery PT OT orders Code(s): S72.142A - Displaced intertrochanteric fracture of left femur, initial encounter for closed fracture Qualifiers: Encounter type: initial encounter Fracture type: closed Fracture alignment: nondisplaced Qualified Code(s): S72.145A - Nondisplaced intertrochanteric fracture of left femur, initial encounter for closed fracture (3) Metacarpal bone fracture Current Visit: Yes Status: Acute Comment: Status post repair postop day 1 Code(s): S62.309A - Unspecified fracture of unspecified metacarpal bone, initial encounter for closed fracture Qualifiers: Encounter type: initial encounter Metacarpal bone: first Fracture alignment: nondisplaced Laterality: left (4) Hypercholesterolemia Current Visit: Yes Status: Acute Code(s): E78.00 - Pure hypercholesterolemia, unspecified (5) Anemia Current Visit: Yes Status: Acute Comment: Postop anemia type and cross and transfuse 2 units Code(s): D64.9 - Anemia, unspecified (6) Hypokalemia Current Visit: Yes Status: Acute Code(s): E87.6 - Hypokalemia
--- NOTE | 2018-05-19 11:15 | ORTHO.PROG ---
Last Taken Vital Signs: Vital Signs - Last Taken Temperature 100.7 F H 05/19/18 07:29 Pulse Rate 104 H 05/19/18 07:29 Respiratory Rate 12 05/19/18 07:29 Blood Pressure 103/50 05/19/18 07:29 Pulse Ox 95 05/19/18 07:29 Subjective: Patient notes pain is now well controlled with the dialogue related and states she has better control with Tylenol No. 3 Objective: Examination shows good motor and sensory exam lower extremity she has a mild amount of swelling of the femur. Dressings are intact no evidence of infection. A left hand splint in place no active issues. Laboratory Results 05/18/18 05/19/18 05/19/18 08:50 04:00 04:00 WBC 4.80 RBC 2.36 L Hgb 6.9 L* Hct 21.7 L MCV 91.9 MCH 29.2 MCHC 31.8 L RDW Std Deviation 44.5 RDW Coeff of Dylan 14.0 Plt Count 148 MPV 10.3 Immature Gran % (Auto) 0.2 Neut % (Auto) 81.3 H Lymph % (Auto) 10.2 [place] % (Auto) 7.7 Eos % (Auto) 0.4 Baso % (Auto) 0.2 Immature Gran # (Auto) 0.01 Neut # (Auto) 3.90 Lymph # (Auto) 0.49 [place] # (Auto) 0.37 Eos # (Auto) 0.02 Baso # (Auto) 0.01 WBC Morphology Comment Normal morphology Plt Morphology Comment Normal morphology RBC Morph Comment See comments Sodium 136 Potassium 3.7 L Chloride 102 Carbon Dioxide 28 Anion Gap 6 BUN 6 L Creatinine 0.4 L Estimated GFR Nursing Program Manager BUN/Creatinine Ratio 15.00 Glucose 133 H Calculated Osmolality 281.0 Calcium 8.1 L Blood Type O POSITIVE Antibody Screen Negative Crossmatch See Detail Intake and Output - 8hrs 05/18/18 05/18/18 05/19/18 05/19/18 13:59 21:59 05:59 13:59 Intake: IV 2119 / 3057 938 / 3057 1380 / 1380 Intake Oral Amount 360 / 560 200 / 560 Output: Output, Urinary Catheter Amount 650 / 1300 50 / 1300 600 / 1300 Output, Urine Amount 35 / 35 Output, Estimated Blood Loss 75 / 75 Amount Other: Percent Meal Consumed Breakfast 25% Dinner 25% Assessment: Left comminuted intertrochanteric hip fracture status post reconstruction nail. Left first metacarpal closed reduction and splinting Anemia Plan: Patient will be transfused with 2 units of packed RBCs. Physical therapy and occupational therapy to begin this a.m. Mobilized touch toe weightbearing on the left. Pain control has been good and we will decrease medication from hydromorphone to Tylenol with codeine No. 3. Patient still has hydromorphone available IV if needed. DVT prophylaxis with Lovenox and pneumatic sequentials portables.
[2018-05-19] MEDS ORDERED: CYANOCOBALAMIN 1000 MCG/1 ML VIAL IM SCH (12:00)
[2018-05-19] MEDS ORDERED: FUROSEMIDE 10 MG/1 ML - 2 ML VIAL IVP ONE (13:24)
[2018-05-19] MEDS ORDERED: ACETAMINOPHEN 325 MG TABLET PO ONE (13:25)
[2018-05-19] MEDS: ASPIRIN EC 81 MG TABLET PO SCH (20:45)
[2018-05-19] MEDS: ATORVASTATIN 10 MG TABLET PO SCH (20:45)
[2018-05-20] MEDS: ACETAMINOPHEN WITH CODEINE 300 MG/30 MG TABLET PO PRN ×7 (00:43→21:47)
[2018-05-20 05:01] LABS: BASOPHILS # (AUTO) 0.01 10*3/UL; BASOPHILS % (AUTO) 0.2 % (0-1); EOSINOPHILS # (AUTO) 0.12 10*3/UL; Hematocrit [HCT] 30.3 % (37.0-47.0); Hemoglobin [HGB] 9.9 g/dL (12.0-16.0); LYMPHOCYTES # (AUTO) 1.38 10*3/uL; MEAN CORPUSCULAR HEMOGLOBIN 28.2 PG (27-31); MEAN CORPUSCULAR HGB CONC 32.7 g/dL (33-37); MEAN CORPUSCULAR VOLUME 86.3 FL (81-99); MEAN PLATELET VOLUME 9.9 FL (7.4-12.2); MONOCYTES # (AUTO) 0.46 10*3/UL (0.3-0.8); MONOCYTES % (AUTO) 7.7 % (5-15); RED BLOOD COUNT 3.51 10^6/uL (4.20-5.40)
[2018-05-20 05:02] LABS: PLATELET MORPHOLOGY COMMENT NORMAL MORPHOLOGY (NORM); RBC MORPHOLOGY COMMENT NORMAL MORPHOLOGY (NORM); WBC MORPHOLOGY COMMENT NORMAL MORPHOLOGY (NORM)
[2018-05-20 05:13] LABS: BLOOD UREA NITROGEN 8 mg/dL (7-22)
[2018-05-20] MEDS: PANTOPRAZOLE 40 MG TABLET PO SCH (06:01)
[2018-05-20] MEDS: MAGNESIUM OXIDE 400 MG TABLET PO SCH (07:22)
[2018-05-20] MEDS: ENOXAPARIN SODIUM 30 MG/0.3 ML SYRINGE SUBCUT SCH (09:00)
[2018-05-20] MEDS: ACYCLOVIR 400 MG TABLET PO SCH ×2 (09:00→21:15)
[2018-05-20] MEDS: DOCUSATE 100 MG CAPSULE PO SCH ×2 (09:00→21:15)
--- NOTE | 2018-05-20 09:17 | PDOC(PROG) ---
Interval History: Patient is doing well postop day 2 in good spirits no complaints no chest pain nausea or vomiting Objective : Data - Labs CBC and BMP: 05/20/18 04:50 05/20/18 04:50 Objective : Exam - General General Appearance: Cooperative - Head Head Exam: Normal Inspection, Normocephalic, Atraumatic - Respiratory Respiratory Exam: Clear to Auscultation - Bilaterally, Breathing Non Labored, Normal To Percussion, Normal to Percussion and Palpation - Cardiovascular Cardiovascular Exam: RRR, No Murmur, No Clicks, No Gallops, No Rubs, PMI Non- Displaced - GI/Abdominal GI/Abdominal Exam: Normal Bowel Sounds, Non Tender, Non Distended, Soft, No Masses, No Hepatomegaly, No Splenomegaly, No Organomegaly Assessment and Plan - Patient Problems (1) Postoperative anemia Current Visit: Yes Status: Acute Comment: Status post transfusion doing well hemoglobin stable Code(s): D64.9 - Anemia, unspecified (2) Intertrochanteric fracture of left femur Current Visit: Yes Status: Acute Comment: Defer to orthopedic PT and OT Code(s): S72.142A - Displaced intertrochanteric fracture of left femur, initial encounter for closed fracture Qualifiers: Encounter type: initial encounter Fracture type: closed Fracture alignment: nondisplaced Qualified Code(s): S72.145A - Nondisplaced intertrochanteric fracture of left femur, initial encounter for closed fracture (3) Metacarpal bone fracture Current Visit: Yes Status: Acute Code(s): S62.309A - Unspecified fracture of unspecified metacarpal bone, initial encounter for closed fracture Qualifiers: Encounter type: initial encounter Metacarpal bone: first Fracture alignment: nondisplaced Laterality: left (4) Hypercholesterolemia Current Visit: Yes Status: Acute Code(s): E78.00 - Pure hypercholesterolemia, unspecified (5) Hypokalemia Current Visit: Yes Status: Acute Comment: Replace with potassium patient agrees Code(s): E87.6 - Hypokalemia
--- NOTE | 2018-05-20 11:26 | ORTHO.PROG ---
Last Taken Vital Signs: Vital Signs - Last Taken Temperature 97.9 F 05/20/18 06:31 Pulse Rate 94 05/20/18 06:31 Respiratory Rate 18 05/20/18 06:31 Blood Pressure 122/58 05/20/18 06:31 Pulse Ox 92 05/20/18 06:31 Subjective: Patient's pain was well-controlled about slow-moving Objective: Left leg with good motor and sensory exam of the lower extremity sensory is good. Hand splint is in place with no active issues. In the left lower leg patient with no calf, popliteal adductor hiatus or thigh pain. Right leg no pain or discomfort with good motion. Laboratory Results 05/18/18 05/20/18 05/20/18 08:50 04:50 04:50 WBC 5.97 RBC 3.51 L Hgb 9.9 L Hct 30.3 L MCV 86.3 MCH 28.2 MCHC 32.7 L RDW Std Deviation 49.2 RDW Coeff of Dylan 16.1 H Plt Count 172 MPV 9.9 Immature Gran % (Auto) 0 Neut % (Auto) 67.0 Lymph % (Auto) 23.1 [place] % (Auto) 7.7 Eos % (Auto) 2.0 Baso % (Auto) 0.2 Immature Gran # (Auto) 0 Neut # (Auto) 4.00 Lymph # (Auto) 1.38 [place] # (Auto) 0.46 Eos # (Auto) 0.12 Baso # (Auto) 0.01 WBC Morphology Comment Normal morphology Plt Morphology Comment Normal morphology RBC Morph Comment Normal morphology Sodium 140 Potassium 3.7 L Chloride 103 Carbon Dioxide 32 Anion Gap 5 BUN 8 Creatinine 0.5 BUN/Creatinine Ratio 16.00 Glucose 113 H Calculated Osmolality 288.0 Calcium 8.5 L Blood Type O POSITIVE Antibody Screen Negative Crossmatch See Detail Vital Signs (24 hrs) 05/19/18 14:26 05/19/18 14:44 05/19/18 14:59 Temperature 98.4 F 98.9 F 98.5 F Pulse Rate 96 91 90 Pulse Rate [Pulse Oximeter] Respiratory Rate 18 16 18 Blood Pressure 118/51 102/39 114/69 Blood Pressure [Left Arm] Blood Pressure [Right Arm] Pulse Ox 89 96 90 05/19/18 15:14 05/19/18 15:27 05/19/18 15:29 Temperature 98.9 F 98.8 F 98.9 F Pulse Rate 94 92 94 Pulse Rate [Pulse Oximeter] Respiratory Rate 16 18 16 Blood Pressure 119/49 114/52 105/56 Blood Pressure [Left Arm] Blood Pressure [Right Arm] Pulse Ox 94 92 94 05/19/18 16:48 05/19/18 17:15 05/19/18 17:29 Temperature 98.7 F 98.7 F 98.7 F Pulse Rate 97 94 90 Pulse Rate [Pulse Oximeter] Respiratory Rate 18 16 16 Blood Pressure 106/55 118/65 98/52 Blood Pressure [Left Arm] Blood Pressure [Right Arm] Pulse Ox 91 92 96 05/19/18 17:45 05/19/18 17:46 05/19/18 18:01 Temperature 98.5 F 98.5 F 98.7 F Pulse Rate 87 87 88 Pulse Rate [Pulse Oximeter] Respiratory Rate 18 18 16 Blood Pressure 102/47 102/47 94/51 Blood Pressure [Left Arm] Blood Pressure [Right Arm] Pulse Ox 96 96 96 05/19/18 18:20 05/19/18 18:44 05/19/18 19:15 Temperature 98.7 F 98.5 F Pulse Rate 89 92 Pulse Rate [Pulse Oximeter] Respiratory Rate 16 16 18 Blood Pressure 105/49 97/55 Blood Pressure [Left Arm] Blood Pressure [Right Arm] Pulse Ox 97 91 05/19/18 21:00 05/20/18 00:46 05/20/18 04:59 Temperature 98.9 F 98 F Pulse Rate Pulse Rate [Pulse Oximeter] 87 90 Respiratory Rate 16 14 Blood Pressure Blood Pressure [Left Arm] 123/49 Blood Pressure [Right Arm] 104/56 Pulse Ox 93 90 90 05/20/18 05:00 05/20/18 06:31 Temperature 97.4 F 97.9 F Pulse Rate Pulse Rate [Pulse Oximeter] 95 94 Respiratory Rate 16 18 Blood Pressure Blood Pressure [Left Arm] 121/66 122/58 Blood Pressure [Right Arm] Pulse Ox 92 Assessment: Left intertrochanteric femur fracture with reconstruction nail diagnoses #2 left thumb metacarpal fracture Plan: Continue with physical therapy and occupational therapy, DVT prophylaxis with Lovenox and pneumatic sequentials. Ice to surgical areas in hand.
[2018-05-20] MEDS: ATORVASTATIN 10 MG TABLET PO SCH (21:15)
[2018-05-20] MEDS: ASPIRIN EC 81 MG TABLET PO SCH (21:15)
[2018-05-21] MEDS: ACETAMINOPHEN WITH CODEINE 300 MG/30 MG TABLET PO PRN ×7 (01:22→20:39)
[2018-05-21 05:11] LABS: BASOPHILS # (AUTO) 0.02 10*3/UL; BASOPHILS % (AUTO) 0.3 % (0-1); EOSINOPHILS # (AUTO) 0.24 10*3/UL; EOSINOPHILS % (AUTO) 4.2 % (0-8); Hematocrit [HCT] 30.1 % (37.0-47.0); Hemoglobin [HGB] 9.8 g/dL (12.0-16.0); LYMPHOCYTES # (AUTO) 1.02 10*3/uL; MEAN CORPUSCULAR HEMOGLOBIN 28.6 PG (27-31); MEAN CORPUSCULAR HGB CONC 32.6 g/dL (33-37); MEAN CORPUSCULAR VOLUME 87.8 FL (81-99); MEAN PLATELET VOLUME 10.2 FL (7.4-12.2); MONOCYTES # (AUTO) 0.39 10*3/UL (0.3-0.8); MONOCYTES % (AUTO) 6.8 % (5-15); NEUTROPHILS # (AUTO) 4.04 10*3/UL; NEUTROPHILS % (AUTO) 70.7 % (50-80); RED BLOOD COUNT 3.43 10^6/uL (4.20-5.40)
[2018-05-21 05:17] LABS: PLATELET MORPHOLOGY COMMENT NORMAL MORPHOLOGY (NORM); RBC MORPHOLOGY COMMENT NORMAL MORPHOLOGY (NORM); WBC MORPHOLOGY COMMENT NORMAL MORPHOLOGY (NORM)
[2018-05-21 05:24] LABS: BLOOD UREA NITROGEN 10 mg/dL (7-22)
[2018-05-21] MEDS: PANTOPRAZOLE 40 MG TABLET PO SCH (06:40)
[2018-05-21] MEDS: MAGNESIUM OXIDE 400 MG TABLET PO SCH (08:00)
[2018-05-21] MEDS: ACYCLOVIR 400 MG TABLET PO SCH ×2 (08:15→20:39)
[2018-05-21] MEDS: ENOXAPARIN SODIUM 30 MG/0.3 ML SYRINGE SUBCUT SCH (08:15)
[2018-05-21] MEDS: DOCUSATE 100 MG CAPSULE PO SCH ×2 (08:15→20:39)
--- NOTE | 2018-05-21 09:13 | PDOC(PROG) ---
Interval History: Doing well with PT has no complaints no chest pain nausea or vomiting Objective : Data - Labs CBC and BMP: 05/21/18 04:20 05/21/18 04:20 Objective : Exam - General General Appearance: Cooperative - Respiratory Respiratory Exam: Clear to Auscultation - Bilaterally, Breathing Non Labored, Normal To Percussion, Normal to Percussion and Palpation - Cardiovascular Cardiovascular Exam: RRR, No Murmur, No Clicks, No Gallops, No Rubs, PMI Non- Displaced - GI/Abdominal GI/Abdominal Exam: Non Tender, Non Distended, Soft - Extremities Extremities Exam: No Clubbing Present, No Edema Present, No Cyanosis Present - Neurological Neurological Exam: Alert, Oriented x 3, No Facial Droop, Speech Intact / Clear Assessment and Plan - Patient Problems (1) Postoperative anemia Current Visit: Yes Status: Acute Comment: Status post transfusion doing well this is from postop anemia Code(s): D64.9 - Anemia, unspecified (2) Intertrochanteric fracture of left femur Current Visit: Yes Status: Acute Comment: Continue PTOT further instructions as per Dr. Olvera Code(s): S72.142A - Displaced intertrochanteric fracture of left femur, initial encounter for closed fracture Qualifiers: Encounter type: initial encounter Fracture type: closed Fracture alignment: nondisplaced Qualified Code(s): S72.145A - Nondisplaced intertro chanteric fracture of left femur, initial encounter for closed fracture (3) Metacarpal bone fracture Current Visit: Yes Status: Acute Comment: Continue PTOT further instructions as per Dr. Olvera Code(s): S62.309A - Unspecified fracture of unspecified metacarpal bone, initial encounter for closed fracture Qualifiers: Encounter type: initial encounter Metacarpal bone: first Fracture alignment: nondisplaced Laterality: left (4) Hypercholesterolemia Current Visit: Yes Status: Acute Comment: Stable Code(s): E78.00 - Pure hypercholesterolemia, unspecified (5) Hypokalemia Current Visit: Yes Status: Acute Comment: Resolved with replacement Code(s): E87.6 - Hypokalemia
--- NOTE | 2018-05-21 10:34 | OT.PROG ---
Progress Note Progress Note: S: pt stated that she wanted to get dressed and that she had difficulties with her taking some of her pills this morning. O: pt completed seated ADL task of dressing. pt needed MAX A to start donning LE brief and shorts to her knees due to hip precautions. pt completed UE dressing independently. pt completed functional transfer from recliner to standing and finished donning brief and shorts independently. pt completed functional transfer form standing to EOB. pt then completed bed mobility from EOB to supine. pt needed MOD A for leg mobility and positioning and MOD A for overall positioning of self in bed. A: pt is very particular in how she completes tasks. pt needed assist with placing pillows and making herself comfortable. pt needs MOD VCs to try and do things on her own or safely. P: continue POC
--- NOTE | 2018-05-21 11:25 | PTI REPORT ---
Thank you for the referral of Teri Barrett. She was seen on 05/18/18 for an inpatient evaluation status post hip pinning. SUBJECTIVE: The patient is a 72-year-old female. The patient reports that she lives alone in [place] in a trailer home. The patient has approximately four stairs to get into her home. The patient uses a four wheeled walker for community distances and does not use an assistive device at home. The patient reports a pain level of 10/10 on the verbal analog scale (0=no pain, 10=worst pain). PAST MEDICAL HISTORY: Past medical history can be found in the patient's medical record. OBJECTIVE FINDINGS: General observations: Nursing okayed therapy prior to PT. The patient was supine and upright in bed upon the therapist's arrival. The patient is on oxygen. Bed mobility: The patient was able to reposition herself in bed independently. The patient was in too much pain to sit edge of bed. Sensation: The patient demonstrated normal dermatomes but felt different due to pain. The patient demonstrated good L4-L5 myotomes. ASSESSMENT: The patient is a 72-year-old female that present status post hip fracture with hip pinning. The patient would benefit from skilled therapy in order to improve functional mobility to return to prior level of function. The patient's prognosis for therapy is fair. Problem List: Patient is toe touch weight-bearing Decreased strength Decreased functional mobility Decreased independence Short-Term Goals: To be met by discharge from inpatient: Patient will be independent with all transfers with least restrictive assistive device. Patient will be able to ambulate 150 feet with least restrictive assistive device. Patient will be able to ascend and descend 5 stairs in order to return to prior level of function independently with least restrictive assistive device. Long-Term Goals: To be met following discharge from inpatient: Patient may benefit from outpatient physical therapy. Patient will be able to return home at prior level of function. TREATMENT PLAN: Patient will be seen B.I.D during the week and one time per day over the weekend as an inpatient for therapeutic exercise, functional activity, neuromuscular reeducation, gait training, range of motion, and modalities as needed. INITIAL TREATMENT: Treatment today consisted of the initial evaluation. Following treatment the patient was left in care of nurses with proper alarms in place. SUNNY
--- NOTE | 2018-05-21 11:36 | PT.PROG ---
Progress Note Progress Note: S. patient states she does not feel safe on the standard walker and would like to try the front wheeled walker instead. Patient agreed to go for a walk. O. Patient ambulated 50 feet in the carvalho with one seated rest break, she was wheeled back to her room and transferred back to bed where she was left with alarm and call light. A. Patient was unsafe with the standard walker so the platform was fitted to her front wheeled walker. Patient continues to struggle with pain and requires frequent verbal cues for safety during ambulation, she insisted on moving her left leg with her right hand during ambulation, she would continue to benefit from skilled therapy to increase strength, mobility and safety at this time. P. Continue POC.
--- NOTE | 2018-05-21 12:53 | OTI REPORT ---
Thank you for the referral of Teri Barrett. She was seen on 05/19/18 for an occupational therapy inpatient evaluation status post left hip pinning and left thumb surgery. SUBJECTIVE: The patient is a 72-year-old female. The patient reports she has been in "screaming" pain this morning. She does agree to participate with occupational therapy evaluation. The patient is very agitated and argumentative this morning. It was very difficult to gather history from the patient. Per the patient's report, she lives in [place], [place]. The patient states she was shoveling snow when she fell and injured her left hip and her left hand. The patient has a long history of previous orthopedic surgeries performed by Dr. Olvera. The patient does like to wear a back brace related to compression fractures as well as a left knee brace. The brace is like an IROM brace but it is also fitted with wooden spoons at this time. The patient's goal is to return home eventually. PAST MEDICAL HISTORY: Past medical history can be found in the patient's medical record. OBJECTIVE FINDINGS: General observations: The patient does agree to get up. During OT evaluation, nursing was present as well as a director of therapy services to assist with moving the patient in a safe manner. The patient does have a thermoplast splint on given by Dr. Olvera following surgery. Per discussion with Dr. Olvera, she is supposed to keep this on for two plus weeks. The patient does have a catheter and an IV in place and was not appropriate to perform dressing tasks at this time. Pain: The patient reports she has screaming pain when she attempts to move the left lower extremity. She was assured that assistance would be provided as necessary. Range of motion: Upper extremity range of motion is within functional limits for the shoulder, elbow, hand, and wrist. Bed mobility: The patient required max assist x3 to get to edge of bed, requiring additional time and max verbal cueing. The patient was unwilling to attempt to move the left lower extremity independently. She also used a leg senior occupational therapist to help lift the leg. The patient was unwilling to move without putting on the knee brace. Transfers: The patient required max assist x2 to stand edge of bed. She initially refused to use a standard walker with a platform on the left side because she wanted to use her four wheeled walker; however, at this time the patient is not safe to use a four wheeled walker due to being toe touch weight- bearing on the left side. We did get her to use the platform walker which she was able to do. The walker was at an appropriate height but may need to be adjusted further down the road when the patient starts ambulating further distances. Ambulation: The patient required max verbal cueing and moderate assistance to ambulate x5 feet following toe touch weight-bearing precautions to the recliner chair. The patient struggled to follow one step verbal commands today and was unsafe at times because she wanted to do it her way. She required extensive verbal cueing and persistence in order to do it in a safe manner. ASSESSMENT: Problem List: Decreased ability to complete lower and upper extremity dressing Decreased ability to complete bed mobility Decreased ability to complete functional transfers Decreased ability to complete toileting/showering Decreased upper extremity strength Increased pain Occupational Therapy Goals: To be met by discharge from inpatient: Patient will demonstrate the ability to complete bed mobility tasks with minimal assistance and minimal verbal cueing. Patient will demonstrate the ability to complete lower extremity dressing tasks while following hip precautions with use of adaptive equipment as needed and contact guard assist for safety. Patient will demonstrate the ability to complete upper extremity dressing tasks independently or with set up assistance. Patient will demonstrate the ability to complete functional transfers from edge of bed, recliner chair, and toilet with contact guard assist for safety while following toe touch weight-bearing precautions and using the platform walker. Patient will demonstrate the ability to complete a toileting task with contact guard assist for the transfer, contact guard assist for toilet hygiene, and independence with pants management. Patient will demonstrate improved activity tolerance and standing balance to stand at the sink x5 minutes to complete standing grooming tasks with use of the walker as needed for support. Patient will improve functional mobility in order to ambulate to and from the bathroom without difficulty with contact guard assist for safety while following toe touch weight-bearing precautions. Patient will increase bilateral upper extremity strength by one manual muscle grade in order to assist with functional mobility with use of the walker. TREATMENT PLAN: Patient will be seen B.I.D during the week and one time per day over the weekend as an inpatient to address the above goals and objectives. INITIAL TREATMENT: Treatment today consisted of the initial evaluation followed by bed mobility tasks with max assist x2 followed by functional ambulation x10 feet with mod assist and max verbal cueing. Following OT session the patient was left with nursing as they were adjusting her IV. No dressing equipment was given at this time; however, the patient may benefit from dressing equipment in the future if she does not already have it. SUNNY
--- NOTE | 2018-05-21 15:29 | OT AM DAY ---
Diagnosis : Left Hip Pinning AM - Occupational Therapy S: The patient reports that she is due for her pain medication. Nursing was notified and came in and gave her pain medication. She reports that she is doing better today and is willing to participate in occupational therapy session and attempt to get up. She did report that she stayed in her chair too long yesterday and is only willing to sit up for approximately 30 minutes today. O: The patient was propped upright in bed upon the therapist's arrival. She demonstrated the ability to move to edge of bed, requiring extra time with contact guard assist for safety. Upon sitting edge of bed, the patient donned her back brace. She already had her left knee brace on. With use of a gait belt, the patient performed a sit to stand transfer with mod assist. The patient used the platform walker and ambulated to the recliner chair x5 feet with contact guard assist for safety at a slow pace. It was noted the patient did not require assistance to move the walker today like she did yesterday, which is an improvement. The patient required mod assist to sit down in the recliner chair due to feeling unsteady. Upon sitting in the recliner chair the patient was made comfortable with feet elevated. The patient was left for approximately 30 minutes. Therapy then returned upon the patient's request and the patient performed a sit to stand transfer with mod assist. The patient then decided to ambulate to the bathroom door x10 feet and x15 feet back to the bed with contact guard assist for safety. The patient was able to move the walker independently. She struggled moving the left lower extremity independently and she would grab hold of her left lower extremity with her knee brace in order to move it forward slightly. The patient did maintain weight-bearing precautions of toe touch weight-bearing today without verbal cues. The patient was assisted back into bed. The patient demonstrated the ability to move from sitting edge of bed to supine and was able to position herself in bed with contact guard assist and additional time. A: The patient's functional mobility and bed mobility have improved greatly today compared to yesterday. She had less apprehension of movement and was able to move the walker independently; however, she is still struggling with moving left lower extremity with ambulation. She did improve in walking distance today. P: Continue seeing patient BID during the week and one time per day over the weekend for upper extremity strengthening, ADLs, and overall functional mobility. MTDD
--- NOTE | 2018-05-21 16:21 | OT.PROG ---
Progress Note Progress Note: S: pt stated that she was getting tired and that she had a long day. O: pt completed supine red R UE RTB exercises in flexion, extension, biceps, triceps and IROT x15 each. A: pt needed multiple rest breaks due to c/o pain in IV area along with fatigue. pt was slow to complete exercises. P: continue POC
--- NOTE | 2018-05-21 17:54 | PT.PROG ---
Progress Note Progress Note: S. Patient stated that she would go for a walk this afternoon. O. Patient ambulated 70 feet in the carvalho. and was wheeled back to her room where she was left in her chair with alarm and call light. A. Patient required mod assist with bed mobility and sit to stand transfer, she was able to ambulate without moving her leg with her right arm this afternoon, she did however require one seated rest break in the carvalho during ambulation and min assist with sit to stands, Patient continues to require verbal cues for safety. Patient would continue to benefit from skilled therapy to meet established goals. P. Continue POC.
[2018-05-21] MEDS: MORPHINE SULFATE 2 MG/1 ML IVP PRN ×2 (20:21→23:24)
--- NOTE | 2018-05-21 20:28 | ORTHO.PROG ---
Last Taken Vital Signs: Vital Signs - Last Taken Temperature 98 F 05/21/18 16:29 Pulse Rate 86 05/21/18 16:29 Respiratory Rate 18 05/21/18 16:29 Blood Pressure 125/66 05/21/18 16:29 Pulse Ox 92 05/21/18 16:29 Subjective: The patient notes being very sore with some discomfort after 2 sessions of therapy. Otherwise feels good Objective: Left incision with some mild swelling proximally and dry drainage distal 2 incisions no drainage or significant swelling. Motor and sensory exam is nonfocal. Patient with no swelling distally in the foot and ankle motor and sensory exam nonfocal. No calf, popliteal, adductor hiatus or thigh pain. Left hand in radial thumb spica splint with no swelling normal sensory exam Laboratory Results 05/18/18 05/21/18 05/21/18 08:13 04:20 04:20 WBC 5.72 RBC 3.43 L Hgb 9.8 L Hct 30.1 L MCV 87.8 MCH 28.6 MCHC 32.6 L RDW Std Deviation 50.7 H RDW Coeff of Dylan 16.4 H Plt Count 192 MPV 10.2 Immature Gran % (Auto) 0.2 Neut % (Auto) 70.7 Lymph % (Auto) 17.8 [place] % (Auto) 6.8 Eos % (Auto) 4.2 Baso % (Auto) 0.3 Immature Gran # (Auto) 0.01 Neut # (Auto) 4.04 Lymph # (Auto) 1.02 [place] # (Auto) 0.39 Eos # (Auto) 0.24 Baso # (Auto) 0.02 WBC Morphology Comment Normal morphology Plt Morphology Comment Normal morphology RBC Morph Comment Normal morphology Sodium 138 Potassium 3.8 Chloride 105 Carbon Dioxide 30 Anion Gap 3 L BUN 10 Creatinine 0.4 L Estimated GFR Tech Writer BUN/Creatinine Ratio 25.00 H Glucose 100 Calculated Osmolality 284.0 Calcium 8.4 L Ur Collection Type Clean catch urine Urine Color Yellow Urine Clarity Clear Urine pH 5.5 Ur Specific [place] 1.007 Urine Protein Negative Urine Glucose (UA) Negative Urine Ketones Negative Urine Occult Blood Moderate H Urine Nitrate Negative Urine Bilirubin Negative Urine Urobilinogen 1.0 Ur Leukocyte Esterase Small Urine RBC 9-14 A Urine WBC 4-8 H Ur Squamous Epith Cells Rare Ur Renal Epithelial Cell None Urine Crystals None Urine Bacteria Few Urine Casts None Urine Mucus Few Urine Trichomonas None Urine Yeast None Ur Culture Indicated? Culture set Vital Signs (24 hrs) 05/21/18 01:00 05/21/18 04:16 05/21/18 04:25 Temperature 98.2 F 97.1 F Pulse Rate [Pulse Oximeter] 91 95 Respiratory Rate 18 18 Blood Pressure [Left Arm] 120/66 122/70 Blood Pressure [Right Arm] Pulse Ox 90 91 91 05/21/18 06:32 05/21/18 08:00 05/21/18 11:19 Temperature 98.4 F 98.3 F Pulse Rate [Pulse Oximeter] 92 90 94 Respiratory Rate 18 18 19 Blood Pressure [Left Arm] 129/68 120/107 Blood Pressure [Right Arm] Pulse Ox 95 92 05/21/18 16:29 Temperature 98 F Pulse Rate [Pulse Oximeter] 86 Respiratory Rate 18 Blood Pressure [Left Arm] Blood Pressure [Right Arm] 125/66 Pulse Ox 92 Assessment: Left comminuted intertrochanteric hip fracture with reconstruction nail Left thumb metacarpal fracture closed reduction and splinting Plan: Continue with current plan is likely to need extended rehabilitation. Patient tentatively refuses to go to a rehabilitation hospital and wishes to stay here for continued rehabilitation.
[2018-05-21] MEDS: ASPIRIN EC 81 MG TABLET PO SCH (20:38)
[2018-05-21] MEDS: ATORVASTATIN 10 MG TABLET PO SCH (20:38)
[2018-05-22] MEDS: ACETAMINOPHEN WITH CODEINE 300 MG/30 MG TABLET PO PRN ×3 (00:29→10:10)
[2018-05-22] MEDS: MORPHINE SULFATE 2 MG/1 ML IVP PRN ×3 (03:39→10:11)
[2018-05-22 04:55] VITALS: RESP 20
[2018-05-22] MEDS: MAGNESIUM OXIDE 400 MG TABLET PO SCH (06:52)
[2018-05-22] MEDS: PANTOPRAZOLE 40 MG TABLET PO SCH (06:53)
[2018-05-22 07:35] VITALS: BP 116/69; TEMP 97.3; O2SAT 92
[2018-05-22] MEDS: DOCUSATE 100 MG CAPSULE PO SCH ×2 (08:41→09:41)
[2018-05-22] MEDS: ACYCLOVIR 400 MG TABLET PO SCH ×2 (08:41→09:41)
[2018-05-22] MEDS: ENOXAPARIN SODIUM 30 MG/0.3 ML SYRINGE SUBCUT SCH (08:41)
[2018-05-22] MEDS ORDERED: HYDROmorphone Tab 4 MG TAB PO PRN (10:24)
--- NOTE | 2018-05-22 10:35 | DCSUMMARY ---
Hospitalization Summary Admit Date: 05/16/2018 Discharge Date: 05/22/18 Primary Diagnosis:: left hip fracture status post ORIF Hospital Course: This is a 72-year-old female that had a hip fracture on 05/16/2018, and she lives in [place], [place], but had neighbors tried her down to the hospital here as she knew the orthopedic surgeon. She was found to have a hip fracture with evaluation here in the emergency room as admitted, orthopedics was consulted, the patient had an open reduction and internal fixation. In terms of recovery from that surgery, the patient has required 2 units of blood to be transfused, but otherwise has been doing fairly well. She has progressed with therapy to the point where she can go to a swing bed now. There were no issues with her medical problems during the hospital stay. She is on Lovenox for DVT prophylaxis. The patient was also found to have a fracture of the first proximal metacarpal and that is being treated nonsurgically. Today, no complaints of chest pain, shortness breath, nausea or vomiting. She complains of left hip pain. She is convinced that she needs morphine for that pain and that she is concerned that pills will not be able to control pain. Assessment and Plan: 1. As per discharge assessments noted 2. Disposition: Patient is discharged to the swing bed 3. Condition on discharge, stable and improved. 4. Diet: regular diet 5. Activities: Continue PT and OT 6. Follow-Up: 1. Hospital service will continue to follow the patient during the swing bed stay 2. Orthopedics will continue to follow during swing bed. 7. Medications at the Time of Discharge: Active Medications Generic Name Dose Route Start Last Admin Trade Name Freq PRN Reason Stop Dose Admin Acetaminophen/Codeine Phosphate 1 - 2 tab 05/19/18 08:39 05/22/18 10:10 Tylenol With Codeine #3 (300mg/30mg) Tablet PO 1 tab Q4H PRN Administration Pain Acyclovir 400 mg 05/18/18 21:00 05/22/18 09:41 Zovirax PO Not Given BID BONIFACIO Artificial Tears 1 drp 05/19/18 09:00 Artificial Tears Ophth Soln EACH EYE DAILY PRN Dry Eyes Aspirin 81 mg 05/18/18 21:00 05/21/18 20:38 Aspirin Ec PO 81 mg BEDTIME BONIFACIO Administration Atorvastatin Calcium 10 mg 05/18/18 21:00 05/21/18 20:38 Lipitor PO 10 mg BEDTIME [facility] Administration Docusate Sodium 100 mg 05/18/18 21:00 05/22/18 09:41 Colace PO Not Given BID [facility] Enoxaparin Sodium 30 mg 05/19/18 09:00 05/22/18 08:41 Lovenox Inj SUBCUT 30 mg DAILY BONIFACIO Administration Fluticasone Propionate 1 sprays 05/18/18 16:01 Flonase Nasal [place] 0.05% ELIOT BID PRN Allergies Hydromorphone HCl 4 mg 05/22/18 10:24 Dilaudid Tab PO Q6H PRN Pain Sodium Chloride 25 mls @ 200 mls/hr 05/18/18 16:01 Normal Saline 0.9% IV .Post Infusion PRN No Primary IV for Flush ONLY Magnesium Oxide 400 mg 05/19/18 07:00 05/22/18 06:52 Mag-Ox PO 400 mg C BK BONIFACIO Administration Morphine Sulfate 1 - 2 mg 05/21/18 19:48 05/22/18 10:11 Morphine Inj IVP 2 mg Q3H PRN Administration Pain Non-Formulary Medication 0 gm 05/18/18 16:01 Hydrocortisone Butyrate/Emoll [Locoid 0.1% Lipocream] TP ASDIR PRN Itching Ondansetron HCl 4 mg 05/18/18 16:01 05/18/18 20:00 Zofran Inj IVP 4 mg Q4H PRN Administration NAUSEA / VOMITING Pantoprazole Sodium 40 mg 05/19/18 06:30 05/22/18 06:53 Protonix PO Not Given DAILY@0630 [facility] Vitamin B Complex 1,000 mcg 05/19/18 12:00 Vitamin B-12 Inj IM MONTHLY [facility] I am discontinuing IV morphine. 8. Time, care, counseling and coordination of care for this discharge is less than 30 minutes. Exam - Vitals Vital Signs: Vital Signs Temperature 97.3 F Temperature Source Temporal Artery Scan Pulse Rate [Pulse Oximeter] 91 Pulse Rate 92 Respiratory Rate 20 Blood Pressure [Left Arm] 116/69 Blood Pressure [Right Arm] 122/69 Blood Pressure 97/55 Pulse Ox 92 Oxygen Flow Rate 1 Oxygen Delivery Method Room Air Height 5 ft Weight 131 lb 9.6 oz - General General Appearance: No Acute Distress - Head Head Exam: Normal Inspection, Normocephalic, Atraumatic - Eye Eye Exam: POSITIVE: No Scleral Icterus - ENT ENT Exam: POSITIVE: Mucous Membranes Moist - Neck Neck Exam: JVP is not Raised - Respiratory Respiratory Exam: POSITIVE: Clear to Auscultation - Bilaterally, Breathing Non Labored - Cardiovascular Cardiovascular Exam: POSITIVE: RRR, No Murmur, No Clicks, No Gallops, No Rubs, No JVD - GI/Abdominal GI/Abdominal Exam: POSITIVE: Normal Bowel Sounds, Non Tender, Non Distended, Soft - Extremities Extremities Exam: POSITIVE: No Clubbing Present, No Edema Present, No Cyanosis Present Additional Extremities Exam Details: Brace is in place over her left lower extremity. Incisions are dressed, clean, dry, intact - Neurological Neurological Exam: POSITIVE: Alert, Oriented x 3, No Facial Droop, Speech Intact / Clear Data Peritnent Studies: 05/18/18 05/21/18 05/21/18 08:13 04:20 04:20 WBC 5.72 Hgb 9.8 L Hct 30.1 L Plt Count 192 Sodium 138 Potassium 3.8 Chloride 105 Carbon Dioxide 30 Anion Gap 3 L BUN 10 Creatinine 0.4 L Estimated GFR Serging Machine Operator Automatic BUN/Creatinine Ratio 25.00 H Glucose 100 Calculated Osmolality 284.0 Calcium 8.4 L Urine Occult Blood Moderate H Urine RBC 9-14 A Urine WBC 4-8 H Ur Culture Indicated? Culture set Staph epidermidis grown out of the bladder, likely contaminant. Procedures: [address] [facility]. [facility] [place] [address] PH: DD: [phone] FAX: [phone] ~DIAGNOSTIC IMAGING REPORT~ Patient: CONSTANCE THOMAS V : 1945 Sex: F Age: 72 Exam Name: CT Lower Extremity WO Contrast Exam Date: 05/17/18 Report # : [id number] CPT Code: 10082 EMR/MR #: [id number] Ordering: Aidan Olvera Admiting: SIDDHARTHA MCCLELLAN MD. Primary: JADEN BESS Attending: SIDDHARTHA MCCLELLAN MD. Signed CT Lower Extremity WO Contrast,05/17/2018 7:55 AM: Clinical History: Comminuted left hip fracture. Previous Exam: March 04, 2007 Findings: Multiple helically acquired CT images are obtained through the pelvis without contrast, and demonstrate postsurgical changes involving the right hip consistent with total hip arthroplasty and a right lower extremity Prosthesis extending down the right femur. There is a comminuted intertrochanteric fracture with avulsion of the lesser trochanter. There is downward displacement of the femoral head. There is some soft tissue stranding within the fat and the musculature. Impression: Comminuted intertrochanteric fracture of the left proximal femur. Dictated By: 05/17/18 1132 JAYME MURILLO MD. Signed By: 05/17/18 1140 JAYME MURILLO MD. [address] Medicine. [facility] [place] [address] PH: DD: [phone] FAX: [phone] ~DIAGNOSTIC IMAGING REPORT~ Patient: CONSTANCE THOMAS V : 1945 Sex: F Age: 72 Exam Name: JEAN HAND MIN 3VW Exam Date: 05/16/18 Report # : [id number] CPT Code: 04050 EMR/MR #: [id number] Ordering: ORESTES MOULTON Admiting: Primary: JADEN BESS Attending: - Signed XR HAND MIN 3VW,05/16/2018 2:22 PM: Clinical History: Status post fall with left hand and thumb pain. Previous Exam: Left wrist performed September 25, 2006 Findings: 3 views of the left hand are obtained, and demonstrate diffuse osteopenia. There is also a fracture involving the proximal left first metacarpal which is new from the prior exam. There are some degenerative changes involving the first carpometacarpal joint. There is some subchondral cyst formation involving the distal radius. There is loss of joint space throughout the interphalangeal joints. Impression: Fracture of the left first proximal metacarpal. Diffuse osteopenia and degenerative changes of the fingers and the radiocarpal joint. Dictated By: 05/16/18 1459 JAYME MURILLO MD. Signed By: 05/16/18 1505 JAYME MURILLO MD. Patient Problems - Patient Problem List (1) Intertrochanteric fracture of left femur Current Visit: Yes Status: Acute Code(s): S72.142A - Displaced intertrochanteric fracture of left femur, initial encounter for closed fracture Qualifiers: Encounter type: initial encounter Fracture type: closed Fracture alignment: nondisplaced Qualified Code(s): S72.145A - Nondisplaced intertrochanteric fracture of left femur, initial encounter for closed fracture Category: Medical (2) Asymptomatic bacteriuria Current Visit: Yes Status: Acute Code(s): R82.71 - Bacteriuria Category: Medical (3) Metacarpal bone fracture Current Visit: Yes Status: Acute Code(s): S62.309A - Unspecified fracture of unspecified metacarpal bone, initial encounter for closed fracture Qualifiers: Encounter type: initial encounter Metacarpal bone: first Fracture alignment: nondisplaced Laterality: left Category: Medical (4) Hypercholesterolemia Current Visit: Yes Status: Acute Code(s): E78.00 - Pure hypercholesterolemia, unspecified Category: Medical (5) Hypokalemia Current Visit: Yes Status: Acute Code(s): E87.6 - Hypokalemia Category: Medical (6) Postoperative anemia Current Visit: Yes Status: Acute Code(s): D64.9 - Anemia, unspecified Category: Medical
--- NOTE | 2018-05-22 10:43 | OT.PROG ---
Progress Note Progress Note: S: pt stated that she had already walked a lot this morning and had a big day. pt stated that her pain was 8/10 sitting. O: tx consisted of seated dressing and ADL tasks. pt completed functional transfer from standing to recliner with MOD A then completed ADL task of hair brushing, denture management, applying face and lip cream, and donning UE shirt with SBA and with set up. pt then attempted to anni LE shorts with leg director of corporate marketing but was unable to complete task. pt needed MOD A for donning shorts over feet and to stand for completion of donning shorts. A: pt was billed for a protective signal operations supervisor and bath sponge for ease with ADLs. pts low pain tolerance hinders pt from completing more exercises in therapy at this time. P: continue POC
--- NOTE | 2018-05-22 13:47 | PT.PROG ---
Progress Note Progress Note: S. Patient stated that she is having a lot of pain this morning, however agreed to go for a walk. O. Patient ambulated 60 feet in the carvalho and back to her room where she performed transfer back to bed where she was left with alarm and call light. A. Patient tolerated ambulation fair, she continues to assist her left leg movement with her right hand, however when patient is distracted patient does not require assistance, she continues to use wooden spoon "splint" and continues to require mod assist with bed mobility and transfers and verbal cues for safety at this time. Patient would continue to benefit from skilled therapy to increase strength, mobility and safety at this time.
== END 2018-05-22 11:50 | DRG 482 ==
LOC: ER 13:45 → MED/SURG 18:43 → OPS 05-18 11:00 → MED/SURG 05-18 15:49
PROVIDERS: ADMIT Internal Medicine; ATTEND Internal Medicine

== ENCOUNTER 2018-05-24 16:02 | Observation (INO) ==
[2018-05-24] MEDS ORDERED: CALCIUM CARBONATE 500 MG (TUMS) CHEWABLE TABLET PO PRN (16:09)
[2018-05-24] MEDS ORDERED: LIDOCAINE W/ SODIUM BICARB 0.5 ML SYR SUBD PRN (16:09)
[2018-05-24] MEDS ORDERED: DOCUSATE 100 MG CAPSULE PO PRN (16:09)
[2018-05-24] MEDS ORDERED: ONDANSETRON 4 MG/2 ML VIAL IVP PRN (16:09)
[2018-05-24] MEDS ORDERED: ACETAMINOPHEN 325 MG TABLET PO PRN (16:09)
--- NOTE | 2018-05-24 16:20 | PDOC ---
HPI - History of Present Illness Date of Service: 05/24/18 Time of Service: 16:15 Chief Complaint: Left metacarpal fracture and GERD History of Present Illness: This is a 72-year-old female with an assorted orthopedic fracture and surgical repair history, osteoporosis, history of coronary artery disease, GERD, amongst other medical issues, who originally fell while shoveling snow on 05/16/2018. She was admitted, and had open reduction and internal fixation of her left hip. It was felt at the time that the left metacarpal fracture could be managed conservatively with splinting/casting, but was determined through the course of the patient's swing bed status that it might be best to approach surgical repair for better outcome. The patient is being readmitted as an observation for that surgery to take place. Incidentally, the patient did have complaints of chest pain, but she stated happened right after she swallowed her potassium pill. She states that she had some nausea the day before taking potassium and had sudden onset of nausea and chest pain after taking her potassium pill today. She states is just too big to handle. She normally takes a potassium supplement [id number], 99 mEq, and also uses food such as bananas to try and replace her potassium. We did an EKG which was equivocal with nonspecific ST changes which are present on her prior EKG as well. The chest pain completely resolved. She was given a dose of nitroglycerin but I suspect she had esophageal spasm. Her troponin initially was negative and we will repeat 2 more. I do not think this is an anginal chest pain. It was nonexertional. She had no issues after her hip fracture surgery and I think she is okay to proceed with further surgery with postoperative risk stratification as indicated. Pain control is been difficult for this patient, but we seem to have a regimen that is helping with Tylenol 3 and Dilaudid. Past Medical History Medical History: 1. Hyperlipidemia. 2. History of mitral valve prolapse. 3. History of hypothyroidism was on treatment but her primary discontinued that in 2009 or 2011. 4. History of cold sores on acyclovir including oral and cream. 5. History of nasal allergies. 6. History of dry eyes. 7. History of compression fractures of her back. 8. Osteoporosis Surgical History: 1. History of Cholecystectomy. 2. History of appendectomy. 3. History of complex right hip surgery in the past. 4. Status post ORIF for left Comminuted hip fracture May 2018 Family History: Reviewed an Not Pertinent Pertinent Family History: Unknown Past Social History: Does not smoke, does not drink, no drugs. Lives by herself in [place], [place]. Does not have children. Tobacco Use: Never Smoker In the Past 12 Months, Have Used or Abuse Any of the Following Substance: None Alcohol Use: None Medication / Allergies Home Medications: Home Medications Medication Instructions Recorded Confirmed Type Acyclovir 400 mg PO BID 03/29/11 05/16/18 History Atorvastatin Calcium [LIPITOR] 10 mg PO DAILY 03/29/11 05/16/18 History Acyclovir [Zovirax] 5 gm TP PRN PRN 04/06/11 05/16/18 History Carboxymethylcellulose Sodium 30 ml OP DAILY 04/06/11 05/16/18 History [Thera Tears] Cyclosporine [Restasis] 1 each OP TID 04/06/11 05/16/18 History Hydrocortisone Butyrate/Emoll 60 gm TP PRN PRN 04/06/11 05/16/18 History [Locoid 0.1% Lipocream] Acetaminophen with Codeine 1 tab PO Q6H PRN tab 10/24/13 05/16/18 History [Tylenol With Codeine #3 Tablet] Codeine Sulfate 1 tab PO PRN PRN tab 10/24/13 05/16/18 History Cyanocobalamin Inj [Vitamin B-12 1,000 mcg IM MONTHLY ml 10/02/14 05/16/18 History Inj] Aspirin [Aspir 81] 1 tab PO QHS tab 05/24/16 05/16/18 History Activated Charcoal [Charcoal, 260 mg PO PRN PRN 05/16/18 05/16/18 History Activated] Fluticasone Nasal [place] 0.05% 1 sprays NASAL BID PRN 05/16/18 05/16/18 History [Flonase Nasal [place] 0.05%] Nitroglycerin 0.4 mg SUBLINGUAL TID PRN 05/16/18 05/16/18 History Allergies/Adverse Reactions: Allergies Allergy/AdvReac Type Severity Reaction Status Date / Time alendronate sodium Allergy Intermediate RASH Verified 05/24/18 06:54 [From Fosamax] latex Allergy Intermediate RASH Verified 05/24/18 06:54 oxycodone [Oxycodone] Allergy Intermediate RASH Verified 05/24/18 06:54 Penicillins Allergy Intermediate RASH Verified 05/24/18 06:54 risedronate sodium Allergy Intermediate RASH Verified 05/24/18 06:54 [From Actonel] Sulfa (Sulfonamide Allergy Intermediate RASH Verified 05/24/18 06:54 Antibiotics) TAPE Allergy Intermediate RASH Uncoded 05/21/18 12:47 Review of Systems - Respiratory Respiratory: REPORTS: Negative System Review - Cardiovascular Cardiovascular: REPORTS: Chest Pain (Very much described and consistent with GERD symptoms) - Gastrointestinal Gastrointestinal / Abdominal: REPORTS: Nausea, Heartburn - Musculoskeletal Musculoskeletal: REPORTS: Other (Pain, left hip, right lower extremity, and left hand) Exam - General General Appearance: No Acute Distress, Cooperative - Head Head Exam: Normal Inspection, Normocephalic, Atraumatic - Eye Eye Exam: POSITIVE: No Scleral Icterus - ENT ENT Exam: POSITIVE: Mucous Membranes Moist - Neck Neck Exam: Normal Inspection - Respiratory Respiratory Exam: POSITIVE: Clear to Auscultation - Bilaterally, Breathing Non Labored - Cardiovascular Cardiovascular Exam: POSITIVE: RRR, No Murmur, No Clicks, No Gallops, No Rubs, No JVD - GI/Abdominal GI/Abdominal Exam: POSITIVE: Normal Bowel Sounds, Non Tender, Non Distended, Soft - Rectal Rectal Exam: POSITIVE: Deferred - External Exam: POSITIVE: Deferred Exam: POSITIVE: Deferred - Extremities Extremities Exam: POSITIVE: No Clubbing Present, No Edema Present, No Cyanosis Present Additional Extremities Exam Details: has some bruising, ecchymosis in the left lower extremity, posteriorly primarily, but to be expected at this stage post injury and surgery. Nothing fluctuant and nothing red hot to suggest infection or cellulitis - Neurological Neurological Exam: POSITIVE: Alert, Oriented x 3, No Facial Droop, Speech Intact / Clear - Psychiatric Psychiatric Exam: POSITIVE: Anxious Results - EKG Data -: EKG Interpreted by Me Rate: Normal EKG Shows Normal: Sinus Rhythm - EKG Data EKG Interpretation: Nonspecific ST-T Wave Changes (Patient's EKGs have consistently had nonspecific ST changes but nothing to suggest acute myocardial event.) Assessment and Plan - Patient Problems (1) GERD (gastroesophageal reflux disease) Status: Acute Code(s): K21.9 - Gastro-esophageal reflux disease without esophagitis Qualifiers: Esophagitis presence: esophagitis presence not specified Qualified Code(s): K21.9 - Gastro-esophageal reflux disease without esophagitis (2) Hypercholesterolemia Status: Acute Code(s): E78.00 - Pure hypercholesterolemia, unspecified (3) Intertrochanteric fracture of left femur Status: Acute Code(s): S72.142A - Displaced intertrochanteric fracture of left femur, initial encounter for closed fracture Qualifiers: Encounter type: subsequent encounter Fracture type: closed Fracture alignment: nondisplaced Fracture healing: with routine healing Qualified Code(s): S72.145D - Nondisplaced intertrochanteric fracture of left femur, subsequent encounter for closed fracture with routine healing (4) Metacarpal bone fracture Status: Acute Code(s): S62.309A - Unspecified fracture of unspecified metacarpal bone, initial encounter for closed fracture Qualifiers: Encounter type: subsequent encounter Metacarpal bone: first Fracture type: closed Metacarpal location: base Fracture morphology: other fracture Fracture alignment: nondisplaced Laterality: left Fracture healing: with delayed healing Qualified Code(s): S62.235G - Other nondisplaced fracture of base of first metacarpal bone, left hand, subsequent encounter for fracture with delayed healing (5) Weakness Status: Acute Code(s): R53.1 - Weakness (6) Osteoporosis Status: Acute Code(s): M81.0 - Age-related osteoporosis without current pathological fracture Qualifiers: Osteoporosis type: age-related (7) Chronic pain syndrome Status: Acute Code(s): G89.4 - Chronic pain syndrome (8) Chest pain Status: Acute Code(s): R07.9 - Chest pain, unspecified Qualifiers: Chest pain type: other chest pain Qualified Code(s): R07.89 - Other chest pain; R07.8 - Other chest pain - Assessment / Plan Additional Assessment/Plan Details: We will readmit the patient for observation for her metacarpal fracture and for her GERD. I do not believe that this chest pain was cardiac in nature at all. Her initial troponin and EKG were negative for acute myocardial event. The pain completely resolved with sublingual nitroglycerin which can also treat esophageal spasm. The patient's history was quite clear and that her symptom onset was after taking potassium. She's had some nausea on potassium over the last 2 days so we will discontinue that. Try to maintain medications as we have through the hospital stay and include Dilaudid and Tylenol 3 for pain. We'll write for morphine when the patient is nothing by mouth. I will start some IV fluids at midnight. Orthopedics will continue to follow the patient and plans on operation tomorrow. After recovery from the fracture surgery, I'm hopeful for resuming a swing bed status if we are able to do so. We will see how the patient responds overall to surgery. Proton pump inhibitor. Stop Lovenox. The patient did request that we check her B12. She is on B12 supplement with her primary provider, and I was actually able to review that and her prior records. Given that, we will go ahead and check a folate and B12 level.
[2018-05-24] MEDS ORDERED: Hypromellose/Glycerin/PEG 400 Ophth Soln 15 ML DROPS EACH EYE PRN (16:29)
[2018-05-24] MEDS ORDERED: FLUTICASONE PROPIONATE 16 GRAM (120 SPRAYS / BOTTLE) ENOS PRN (16:34)
[2018-05-24] MEDS ORDERED: HYDROmorphone 2 MG TABLET PO PRN (16:35)
[2018-05-24] MEDS ORDERED: ONDANSETRON 4 MG/2 ML VIAL IV PRN (16:36)
[2018-05-24 17:27] LABS: BLOOD UREA NITROGEN 19 mg/dL (7-22)
[2018-05-24 17:32] LABS: BASOPHILS # (AUTO) 0.01 10*3/UL; BASOPHILS % (AUTO) 0.2 % (0-1); EOSINOPHILS # (AUTO) 0.11 10*3/UL; EOSINOPHILS % (AUTO) 2.5 % (0-8); Hematocrit [HCT] 34.7 % (37.0-47.0); LYMPHOCYTES # (AUTO) 1.18 10*3/uL; MEAN CORPUSCULAR HEMOGLOBIN 28.3 PG (27-31); MEAN CORPUSCULAR HGB CONC 31.7 g/dL (33-37); MEAN CORPUSCULAR VOLUME 89.2 FL (81-99); MEAN PLATELET VOLUME 9.8 FL (7.4-12.2); MONOCYTES % (AUTO) 6.7 % (5-15); NEUTROPHILS # (AUTO) 2.86 10*3/UL; RED BLOOD COUNT 3.89 10^6/uL (4.20-5.40)
[2018-05-24 17:33] LABS: PLATELET MORPHOLOGY COMMENT NORMAL MORPHOLOGY (NORM); RBC MORPHOLOGY COMMENT NORMAL MORPHOLOGY (NORM); WBC MORPHOLOGY COMMENT NORMAL MORPHOLOGY (NORM)
[2018-05-24] MEDS: DOCUSATE 100 MG CAPSULE PO SCH ×2 (20:05→21:39)
[2018-05-24] MEDS: ACETAMINOPHEN WITH CODEINE 300 MG/30 MG TABLET PO PRN ×2 (20:05→23:54)
[2018-05-24] MEDS: Ondansetron ODT Tab 4 MG TAB PO PRN (20:11)
[2018-05-24] MEDS ORDERED: ATORVASTATIN 10 MG TABLET PO SCH (21:00)
[2018-05-24] MEDS ORDERED: LORazepam 1 MG TABLET PO ONE (22:43)
[2018-05-24] MEDS: Sodium Chloride 0.9% 1,000 ML PRIMARY IV SCH (23:54)
[2018-05-25] MEDS: Ondansetron ODT Tab 4 MG TAB PO PRN (04:11)
[2018-05-25] MEDS: ACETAMINOPHEN WITH CODEINE 300 MG/30 MG TABLET PO PRN ×3 (04:11→20:13)
[2018-05-25] MEDS: Lactated Ringers 1,000 ML PRIMARY IV SCH ×3 (04:11→22:44)
[2018-05-25] MEDS: PANTOPRAZOLE 40 MG TABLET PO SCH ×2 (06:35→06:39)
[2018-05-25] MEDS ORDERED: MAGNESIUM OXIDE 400 MG TABLET PO SCH (07:00)
[2018-05-25] MEDS: DOCUSATE 100 MG CAPSULE PO SCH ×2 (10:30→21:12)
[2018-05-25] MEDS: Sodium Chloride 0.9% 1,000 ML PRIMARY IV SCH (10:42)
[2018-05-25] MEDS: MORPHINE SULFATE 4 MG/1 ML IVP PRN ×2 (10:51→10:53)
[2018-05-25] MEDS ORDERED: [UNRECOGNIZED DRUG - OTHER] EACH EYE PRN (11:21)
[2018-05-25] MEDS ORDERED: NITROGLYCERIN 0.4 MG SL TAB (BOTTLE OF 3) SL PRN ×2 (11:25→17:41)
[2018-05-25] MEDS ORDERED: MORPHINE SULFATE 4 MG/1 ML IVP PRN ×2 (12:19→17:41)
[2018-05-25] MEDS ORDERED: MORPHINE SULFATE 4 MG/1 ML ONE (12:23)
[2018-05-25] MEDS ORDERED: MIDAZOLAM 5 MG/1 ML ONE (13:37)
[2018-05-25] MEDS ORDERED: LIDOCAINE 2%/ EPI 1:200,000 - 20 ML VIAL ONE (13:37)
[2018-05-25] MEDS ORDERED: Mepivacaine Inj 1.5% 450 MG/30 ML VIAL ONE (13:38)
[2018-05-25] MEDS ORDERED: fentaNYL Inj 100 MCG/2 ML VIAL ONE (13:38)
[2018-05-25] MEDS ORDERED: KETAMINE HCL 100 MG/2 ML SYRINGE IV ONE (14:12)
[2018-05-25] MEDS ORDERED: PROPOFOL 10 MG/1 ML (200 MG/20 ML) VIAL IV ONE (14:14)
--- NOTE | 2018-05-25 14:16 | PDOC(PROG) ---
Date of Service: 05/25/18 Time of Service: 11:30 Interval History: States that she's had increased pain in her wrist and leg. No chest pain, shortness breath, or vomiting. Workup was entirely negative for any acute coronary syndrome. Electrolytes looked much better and potassium is now normalized. She is awaiting surgery. Objective : Data - Labs CBC and BMP: 05/24/18 17:01 05/24/18 17:01 Additional Lab Results: 05/24/18 05/24/18 05/24/18 10:30 17:01 17:01 PT INR Troponin I < 0.012 < 0.012 Vitamin B12 > 1000 H Serum Folate 12.5 05/24/18 17:20 PT 10.0 INR 0.98 Troponin I Vitamin B12 Serum Folate - EKG Data -: EKG Interpreted by Me Rate: Normal EKG Shows Normal: Sinus Rhythm - EKG Data EKG Interpretation: Nonspecific ST-T Wave Changes, Other (This is the EKG from 05/24/2018. Nonspecific ST flattening changes are consistent on my view of her EKGs in the system.) Objective : Exam - General General Appearance: No Acute Distress, Cooperative Additional General Exam Details: Vital Signs - Last Taken Temperature 98.4 F 05/25/18 12:39 Pulse Rate 92 05/25/18 12:39 Respiratory Rate 12 05/25/18 12:39 Blood Pressure 130/66 05/25/18 12:39 Pulse Ox 93 05/25/18 12:39 - Eye Eye Exam: No Scleral Icterus - ENT ENT Exam: Mucous Membranes Moist - Neck Neck Exam: JVP is not Raised - Respiratory Respiratory Exam: Clear to Auscultation - Bilaterally, Breathing Non Labored - Cardiovascular Cardiovascular Exam: RRR, No Murmur, No Clicks, No Gallops, No Rubs, No JVD - GI/Abdominal GI/Abdominal Exam: Normal Bowel Sounds, Non Tender, Non Distended, Soft - Extremities Extremities Exam: No Clubbing Present, No Edema Present, No Cyanosis Present Additional Extremities Exam Details: Left lower leg swelling is improved. Ecchymosis present but improving - Neurological Neurological Exam: Alert, Oriented x 3, No Facial Droop, Speech Intact / Clear - Psychiatric Psychiatric Exam: Anxious Assessment and Plan - Patient Problems (1) Metacarpal bone fracture Current Visit: No Status: Acute Code(s): S62.309A - Unspecified fracture of unspecified metacarpal bone, initial encounter for closed fracture Qualifiers: Encounter type: subsequent encounter Metacarpal bone: first Fracture type: closed Metacarpal location: base Fracture morphology: other fracture Fracture alignment: nondisplaced Laterality: left Fracture healing: with delayed healing Qualified Code(s): S62.235G - Other nondisplaced fracture of base of first metacarpal bone, left hand, subsequent encounter for fracture with delayed healing (2) GERD (gastroesophageal reflux disease) Current Visit: No Status: Acute Code(s): K21.9 - Gastro-esophageal reflux di sease without esophagitis Qualifiers: Esophagitis presence: esophagitis presence not specified Qualified Code(s): K21.9 - Gastro-esophageal reflux disease without esophagitis (3) Hypercholesterolemia Current Visit: No Status: Acute Code(s): E78.00 - Pure hypercholesterolemia, unspecified (4) Intertrochanteric fracture of left femur Current Visit: No Status: Acute Code(s): S72.142A - Displaced intertrochanteric fracture of left femur, initial encounter for closed fracture Qualifiers: Encounter type: subsequent encounter Fracture type: closed Fracture alignment: nondisplaced Fracture healing: with routine healing Qualified Code(s): S72.145D - Nondisplaced intertrochanteric fracture of left femur, subse quent encounter for closed fracture with routine healing (5) Weakness Current Visit: No Status: Acute Code(s): R53.1 - Weakness (6) Osteoporosis Current Visit: No Status: Acute Code(s): M81.0 - Age-related osteoporosis without current pathological fracture Qualifiers: Osteoporosis type: age-related (7) Chronic pain syndrome Current Visit: No Status: Acute Code(s): G89.4 - Chronic pain syndrome (8) Chest pain Current Visit: No Status: Acute Code(s): R07.9 - Chest pain, unspecified Qualifiers: Chest pain type: other chest pain Qualified Code(s): R07.89 - Other chest pain; R07.8 - Other chest pain - Assessment / Plan Additional Assessment/Plan Details: Continue nothing by mouth status. Morphine when necessary for pain. Frequency was adjusted for more frequent doses. Surgery later today with orthopedics for metacarpal fracture open reduction internal fixation. I'm hopeful that we can discharge patient back to swing bed either later tonight or tomorrow. Most likely tomorrow. I'm very pleased and happy with the way pharmacy has been dealing with the patient they have done an excellent and outstanding job in helping the patient with her medication administration as well as medication review. The patient is a stickler for lots of details and has multiple complaints about medication administration throughout the hospital stay, but the pharmacy team and pharmacists have done an outstanding job at dealing with this. There is no evidence of any acute coronary syndrome. I think this was all related to GERD from potassium pills. The patient may proceed with surgery with postoperative risk stratification as appropriate. She would meet the metabolic equivalents to go to surgery. Lovenox was discontinued and was not given today.
[2018-05-25] MEDS ORDERED: CYCLOSPORINE OPTHALMIC EACH EYE SCH (15:00)
[2018-05-25] MEDS ORDERED: BACITRACIN 50,000 UNIT VIAL IRRIG ONE (15:00)
[2018-05-25] MEDS ORDERED: Sodium Chloride 0.9% vial 10 ML ONE (15:00)
[2018-05-25] MEDS ORDERED: Clindamycin 900mg (Premix) 900 MG/50 ML BAG IV ONE (15:02)
[2018-05-25] MEDS ORDERED: BUPivacaine Liposome/PF (Exparel) Inj 20ml vial INFIL ONE (15:46)
[2018-05-25] MEDS ORDERED: TRANEXAMIC ACID 1,000 MG / 10 ML VIAL ONE ×2 (15:53→15:58)
--- NOTE | 2018-05-25 16:21 | CRNA.PROGR ---
Anesthesia Time - Procedure/Recovery Time Start Date: 05/25/18 End Date: 05/25/18 Anesthesia : Time In: 14:27 Anesthesia : Time Out: 16:39 Anesthesia : Total Time: 132 - Total Anesthesia Time Total Anesthesia Time (minutes): 132 - Other Weight: 58.151 kg Height: 5 ft 5 in Body Mass Index (BMI): 21.3 Physical Status: P3 Anesthesia Type: General Anesthesia : LMA
[2018-05-25] MEDS ORDERED: ONDANSETRON 4 MG/2 ML VIAL ONE (16:46)
[2018-05-25] MEDS ORDERED: HYDROmorphone 2 MG/1 ML ONE (16:46)
--- NOTE | 2018-05-25 16:54 | ORTHO.OP ---
- - -: See Dictated Operative Report Procedure Codes - Upper Extremity Procedures Primary Wrist/Hand/Elbow Procedure Code: Other CPT Code(s) (93839, Charissa BRUNO assisted)
--- NOTE | 2018-05-25 17:02 | CRNA.PROGR ---
Anesthesia Recovery Phase I - Post Anesthesia Evaluation Patient's Condition on Arrival in Phase I: Stable Patient's Condition on Arrival in Phase II: Stable (medicated for pain and to prevent Nausea.) Pain Level: 10
--- NOTE | 2018-05-25 17:03 | CRNA.PROGR ---
Post Anesthesia Phase II - Post Anesthesia Phase II Care Assumed By Surgeon: Aidan Olvera MD Temperature: 98.4 F Respiratory Rate: 12 Pulse Ox: 93 Total Migdalia Score at Discharge: 9 Post Anesthesia Discharge Criteria Met: Yes
[2018-05-25] MEDS ORDERED: FLUTICASONE PROPIONATE 16 GRAM (120 SPRAYS / BOTTLE) ENOS PRN (17:41)
[2018-05-25] MEDS ORDERED: Lactated Ringers 1,000 ML PRIMARY IV SCH (17:41)
[2018-05-25] MEDS ORDERED: Sodium Chloride 0.9% 1,000 ML PRIMARY IV SCH (17:41)
[2018-05-25] MEDS ORDERED: THERATEARS EACH EYE PRN (17:41)
[2018-05-25] MEDS ORDERED: LIDOCAINE W/ SODIUM BICARB 0.5 ML SYR SUBD PRN (17:41)
[2018-05-25] MEDS ORDERED: ONDANSETRON 4 MG/2 ML VIAL IVP PRN ×2 (17:41)
[2018-05-25] MEDS ORDERED: Ondansetron ODT Tab 4 MG TAB PO PRN (17:41)
[2018-05-25] MEDS ORDERED: DOCUSATE 100 MG CAPSULE PO PRN (17:41)
[2018-05-25] MEDS ORDERED: ACYCLOVIR 200 MG PO SCH ×2 (21:00)
[2018-05-25] MEDS ORDERED: ATORVASTATIN 10 MG TABLET PO SCH (21:00)
[2018-05-25] MEDS ORDERED: ACYCLOVIR 200 MG CAPSULE PO SCH (21:00)
[2018-05-25] MEDS: HYDROmorphone 2 MG TABLET PO PRN (21:12)
[2018-05-25] MEDS: ACYCLOVIR 200 MG CAPSULE PO SCH (21:13)
[2018-05-25] MEDS: CYCLOSPORINE EACH EYE SCH (23:35)
[2018-05-26] MEDS: ACETAMINOPHEN WITH CODEINE 300 MG/30 MG TABLET PO PRN ×5 (00:03→18:17)
[2018-05-26] MEDS: Lactated Ringers 1,000 ML PRIMARY IV SCH ×2 (02:12→03:41)
[2018-05-26 05:24] LABS: Hematocrit [HCT] 31.3 % (37.0-47.0); Hemoglobin [HGB] 9.6 g/dL (12.0-16.0); MEAN CORPUSCULAR HGB CONC 30.7 g/dL (33-37); MEAN CORPUSCULAR VOLUME 91.3 FL (81-99); MEAN PLATELET VOLUME 8.9 FL (7.4-12.2); RED BLOOD COUNT 3.43 10^6/uL (4.20-5.40)
[2018-05-26 05:37] LABS: BLOOD UREA NITROGEN 9 mg/dL (7-22)
[2018-05-26] MEDS: HYDROmorphone 2 MG TABLET PO PRN ×2 (06:41→14:27)
[2018-05-26] MEDS ORDERED: PANTOPRAZOLE 40 MG TABLET PO SCH (07:00)
[2018-05-26] MEDS ORDERED: MAGNESIUM OXIDE 400 MG TABLET PO SCH (07:00)
[2018-05-26] MEDS: ACYCLOVIR 200 MG CAPSULE PO SCH (08:04)
[2018-05-26] MEDS: CYCLOSPORINE EACH EYE SCH ×2 (08:12→14:54)
[2018-05-26] MEDS: DOCUSATE 100 MG CAPSULE PO SCH (08:14)
--- NOTE | 2018-05-26 11:45 | ORTHO.PROG ---
Last Taken Vital Signs: Vital Signs - Last Taken Temperature 98.5 F 05/26/18 06:32 Pulse Rate 83 05/26/18 06:44 Respiratory Rate 16 05/26/18 06:32 Blood Pressure 112/60 05/26/18 06:32 Pulse Ox 92 05/26/18 06:32 Subjective: Patient notes some pain in the left hip region but getting better, left arm with some discomfort feels dressing tight Objective: On the left arm her dressing was loosen the Stew wraps removed and a dressing was relieved so easy access up and down the cast padding with no pressure. Sensory exam otherwise is intact very minimal swelling Patient with small blister around the second incision site but otherwise incision is clean and healthy neurovascular intact no distal swelling or edema but significant ecchymosis along the leg from the hip all the way down to the ankle region. Neurovascular intact. Laboratory Results 05/26/18 05/26/18 05:15 05:15 WBC 4.51 L RBC 3.43 L Hgb 9.6 L Hct 31.3 L MCV 91.3 MCH 28.0 MCHC 30.7 L RDW Std Deviation 51.2 H RDW Coeff of Dylan 16.7 H Plt Count 391 H MPV 8.9 Sodium 139 Potassium 4.3 Chloride 106 Carbon Dioxide 28 Anion Gap 5 BUN 9 Creatinine 0.4 L Estimated GFR Electrical Development Engineer BUN/Creatinine Ratio 22.50 H Glucose 99 Calculated Osmolality 286.0 Calcium 8.9 Vital Signs (24 hrs) 05/25/18 12:39 05/25/18 16:31 05/25/18 16:36 Temperature 98.4 F 96.8 F Pulse Rate 117 H 114 H Pulse Rate [Pulse Oximeter] 92 Respiratory Rate 12 20 17 Blood Pressure 161/88 163/82 Blood Pressure [Right Arm] 130/66 Pulse Ox 93 93 89 05/25/18 16:41 05/25/18 16:51 05/25/18 17:00 Temperature 97.8 F 97.6 F Pulse Rate 117 H 110 H Pulse Rate [Pulse Oximeter] 106 H Respiratory Rate 21 18 16 Blood Pressure 154/93 149/76 Blood Pressure [Right Arm] 129/79 Pulse Ox 94 97 91 05/25/18 17:01 05/25/18 17:11 05/25/18 17:21 Temperature 99.3 F Pulse Rate 93 93 93 Pulse Rate [Pulse Oximeter] Respiratory Rate 12 24 11 L Blood Pressure 144/71 121/67 128/66 Blood Pressure [Right Arm] Pulse Ox 95 93 96 05/25/18 19:00 05/25/18 19:34 05/26/18 00:13 Temperature 98.1 F 97.9 F Pulse Rate Pulse Rate [Pulse Oximeter] 86 85 92 Respiratory Rate 22 20 Blood Pressure Blood Pressure [Right Arm] 123/68 131/61 Pulse Ox 97 92 05/26/18 03:03 05/26/18 05:00 05/26/18 06:32 Temperature 98.5 F 98.5 F Pulse Rate Pulse Rate [Pulse Oximeter] 98 83 Respiratory Rate 20 16 Blood Pressure Blood Pressure [Right Arm] 128/84 112/60 Pulse Ox 93 92 92 05/26/18 06:44 Temperature Pulse Rate Pulse Rate [Pulse Oximeter] 83 Respiratory Rate Blood Pressure Blood Pressure [Right Arm] Pulse Ox Assessment: Left comminuted intertrochanteric hip fracture with a reconstruction nail Left first metacarpal fracture comminuted with progressive angulation status post open reduction internal fixation. Chronic history of osteoporosis, anemia stable Plan: Continue with current care time with Tylenol with Codeine as her baseline medication for pain control with Dilaudid for breakthrough pain. Patient also has some morphine available if needed but has not taken this. continue ice elevation physical therapy and occupational therapy. We will restart her on her anticoagulation.
[2018-05-26] MEDS ORDERED: ENOXAPARIN SODIUM 30 MG/0.3 ML SYRINGE SUBCUT SCH (12:00)
--- NOTE | 2018-05-26 12:43 | DCSUMMARY ---
Hospitalization Summary Admit Date: 05/24/2018 Discharge Date: 05/26/18 Primary Diagnosis:: left metacarpal fracture, status post ORIF Hospital Course: This 72-year-old female with osteoporosis, multiple issues, had a metacarpal fracture from a fall earlier in May 2018. Initially it was felt that this could be managed conservatively but with monitoring of healing this did not look like it was doing very well, so was determined that the patient would have etc., she had an open reduction and internal fixation of this fracture. She did. She had this performed by Dr. Olvera. Please see his notes on the procedure. Today, the patient does have some pain, but managed with by mouth Dilaudid and Tylenol No. 3, the patient has no need to stay on observation status and can resume her swing bed status for continued physical therapy and occupational therapy and recovery from her left hip fracture as well as her left metacarpal base fracture. Workup was completely and entirely negative for any evidence of acute coronary syndrome. She developed esophageal spasm and GERD symptoms related to by mouth potassium. She denies any chest pain, shortness breath, nausea or vomiting but does states today she is having some burning with urination so we will check a urinalysis to make sure there is no evidence of urinary tract infection. Specimen has been ordered. Assessment and Plan: 1. As per discharge assessments noted 2. Disposition: Patient is discharged back to swing bed 3. Condition on discharge, stable and improved. 4. Diet: regular diet 5. Activities: Continue PT and OT, hospitalist and orthopedics services will continue to follow 6. Follow-Up: Hospitals and orthopedic services will continue to follow 7. Medications at the Time of Discharge: Active Medications Generic Name Dose Route Start Last Admin Trade Name Freq PRN Reason Stop Dose Admin Acetaminophen/Codeine Phosphate 1 - 2 tab 05/25/18 17:41 05/26/18 08:04 Tylenol With Codeine #3 (300mg/30mg) Tablet PO 2 tab Q4H PRN Administration Pain Acyclovir 400 mg 05/25/18 21:00 05/26/18 08:04 Acyclovir PO 400 mg BID BONIFACIO Administration Atorvastatin Calcium 10 mg 05/25/18 21:00 05/25/18 21:12 Lipitor PO 10 mg BEDTIME BONIFACIO Administration Docusate Sodium 100 mg 05/25/18 17:41 Colace PO BID PRN Constipation Docusate Sodium 100 mg 05/25/18 21:00 05/26/18 08:14 Colace PO Not Given BID [facility] Enoxaparin Sodium 30 mg 05/26/18 12:00 Lovenox Inj SUBCUT DAILY [facility] Fluticasone Propionate 1 sprays 05/25/18 17:41 Flonase Nasal [place] 0.05% ELIOT BID PRN Allergy Hydromorphone HCl 2 mg 05/25/18 17:41 05/26/18 06:41 Dilaudid Tab PO 2 mg Q6H PRN Administration Pain Sodium Chloride 25 mls @ 200 mls/hr 05/25/18 17:41 Normal Saline 0.9% IV .Post Infusion PRN No Primary IV for Flush ONLY Lidocaine HCl 0.5 ml 05/25/18 17:41 Lidocaine Buffered Inj SUBD ONCE PRN IV Starts Magnesium Oxide 400 mg 05/26/18 07:00 05/26/18 06:41 Mag-Ox PO Not Given C BK [facility] Morphine Sulfate 4 mg 05/25/18 17:41 Morphine Inj IVP Q2H PRN pain when NPO Nitroglycerin 0 tab 05/25/18 17:41 Nitrostat Sl 0.4mg Tab SL Q5M PRN Chest Pain Non-Formulary Medication 1 drp 05/25/18 21:00 05/26/18 08:12 Cyclosporine Opthalmic EACH EYE 1 drp TID BONIFACIO Administration Non-Formulary Medication 1 drp 05/25/18 17:41 Theratears EACH EYE DAILY PRN Dry Eyes Ondansetron HCl 4 mg 05/25/18 17:41 Zofran Inj IVP Q4H PRN NAUSEA / VOMITING Ondansetron HCl 4 mg 05/25/18 17:41 Zofran Inj IVP Q4H PRN NAUSEA / VOMITING Ondansetron HCl 4 mg 05/25/18 17:41 Zofran Odt PO Q6H PRN Nausea Pantoprazole Sodium 40 mg 05/26/18 07:00 05/26/18 06:42 Protonix PO Not Given AC BK BONIFACIO 8. Time, care, counseling and coordination of care for this discharge is less than 30 minutes. Exam - Vitals Vital Signs: Vital Signs Temperature 98.5 F Temperature Source Temporal Artery Scan Pulse Rate [Pulse Oximeter] 83 Pulse Rate 93 Respiratory Rate 16 Blood Pressure [Right Arm] 112/60 Blood Pressure [Left Arm] 123/59 Blood Pressure 128/66 Pulse Ox 92 Oxygen Flow Rate 1 Oxygen Delivery Method Room Air Height 5 ft 5 in Weight 128 lb 3.2 oz - General General Appearance: No Acute Distress, Cooperative - Eye Eye Exam: POSITIVE: No Scleral Icterus - ENT ENT Exam: POSITIVE: Mucous Membranes Moist - Neck Neck Exam: JVP is not Raised - Respiratory Respiratory Exam: POSITIVE: Clear to Auscultation - Bilaterally, Breathing Non Labored - Cardiovascular Cardiovascular Exam: POSITIVE: RRR, No Murmur, No Clicks, No Gallops, No Rubs, No JVD - GI/Abdominal GI/Abdominal Exam: POSITIVE: Normal Bowel Sounds, Non Tender, Non Distended, Soft - Extremities Extremities Exam: POSITIVE: No Clubbing Present, No Edema Present, No Cyanosis Present - Neurological Neurological Exam: POSITIVE: Alert, Oriented x 3, No Facial Droop, Speech Intact / Clear Data Peritnent Studies: 05/24/18 05/24/18 05/26/18 17:01 17:20 05:15 WBC 4.51 L Hgb 9.6 L Hct 31.3 L Plt Count 391 H PT 10.0 INR 0.98 Sodium Potassium Chloride Carbon Dioxide Anion Gap BUN Creatinine BUN/Creatinine Ratio Glucose Calculated Osmolality Calcium Vitamin B12 > 1000 H Serum Folate 12.5 05/26/18 05:15 WBC Hgb Hct Plt Count PT INR Sodium 139 Potassium 4.3 Chloride 106 Carbon Dioxide 28 Anion Gap 5 BUN 9 Creatinine 0.4 L BUN/Creatinine Ratio 22.50 H Glucose 99 Calculated Osmolality 286.0 Calcium 8.9 Vitamin B12 Serum Folate Patient Problems - Patient Problem List (1) Metacarpal bone fracture Current Visit: No Status: Acute Code(s): S62.309A - Unspecified fracture of unspecified metacarpal bone, initial encounter for closed fracture Qualifiers: Encounter type: subsequent encounter Metacarpal bone: first Fracture type: closed Metacarpal location: base Fracture morphology: other fracture Fracture alignment: nondisplaced Laterality: left Fracture healing: with delayed healing Qualified Code(s): S62.235G - Other nondisplaced fracture of base of first metacarpal bone, left hand, subsequent encounter for fracture with delayed healing Category: Medical (2) GERD (gastroesophageal reflux disease) Current Visit: No Status: Acute Code(s): K21.9 - Gastro-esophageal reflux disease without esophagitis Qualifiers: Esophagitis presence: esophagitis presence not specified Qualified Code(s): K21.9 - Gastro-esophageal reflux disease without esophagitis Category: Medical (3) Hypercholesterolemia Current Visit: No Status: Acute Code(s): E78.00 - Pure hypercholesterolemia, unspecified Category: Medical (4) Intertrochanteric fracture of left femur Current Visit: No Status: Acute Code(s): S72.142A - Displaced intertrochanteric fracture of left femur, initial encounter for closed fracture Qualifiers: Encounter type: subsequent encounter Fracture type: closed Fracture alignment: nondisplaced Fracture healing: with routine healing Qualified Code(s): S72.145D - Nondisplaced intertrochanteric fracture of left femur, subsequent encounter for closed fracture with routine healing Category: Medical (5) Weakness Current Visit: No Status: Acute Code(s): R53.1 - Weakness Category: Medical (6) Osteoporosis Current Visit: No Status: Acute Code(s): M81.0 - Age-related osteoporosis without current pathological fracture Qualifiers: Osteoporosis type: age-related Category: Medical (7) Chronic pain syndrome Current Visit: No Status: Acute Code(s): G89.4 - Chronic pain syndrome Category: Medical (8) Chest pain Current Visit: No Status: Acute Code(s): R07.9 - Chest pain, unspecified Qualifiers: Chest pain type: other chest pain Qualified Code(s): R07.89 - Other chest pain; R07.8 - Other chest pain Category: Medical
[2018-05-26 16:00] LABS: BILIRUBIN,URINE NEGATIVE (NEG); CLARITY,URINE CLEAR (CLEAR); COLOR,URINE YELLOW (Y); GLUCOSE, URINE (UA) NEGATIVE (NEG); OCCULT BLOOD,URINE NEGATIVE (NEG); PROTEIN,URINE NEGATIVE (NEG)
[2018-05-26 16:20] LABS: URINE SAMPLE TYPE CLEAN CATCH URINE
[2018-05-26 16:49] VITALS: O2SAT 92
[2018-05-26 18:06] VITALS: BP 130/79; RESP 18; TEMP 97.6
--- NOTE | 2018-05-28 11:51 | PT AM DAY ---
Diagnosis : Left Hip Pinning AM - Physical Therapy S: The patient is in a lot of pain today. She states she had surgery yesterday on her hand and was hurting a lot. She was given a sling but she does not want to wear it because it pulls on her neck and shoulder. O: The patient was wheeled down to the therapy gym where she received an application of moist heat pack x20 minutes including set up to the left hip. She performed therapeutic exercises and functional activities including ankle pumps, quad sets, heel slides, and glut sets on her surgical leg. On her non surgical leg she performed ankle pumps, quad sets, heel slides, straight leg raises, short arc quads, and hip abduction/adduction. She performed 5 sit to stands and was wheeled back up to her room. A: We did talk to Dr. Olvera and he is pleased with the progress of her thumb surgery but he does want her to wear the sling and did tell her that. P: Continue seeing patient BID during the week and one time per day over the weekend for transfers, ambulation, and range of motion/strengthening exercises. SUNNY
== END 2018-05-26 18:57 | disposition swing bed (61) ==
LOC: MED/SURG → OPS 05-25 13:21 → MED/SURG 05-25 17:23
PROVIDERS: ADMIT Family Medicine; ATTEND Family Medicine